=== PATIENT | male | born 1975 | race Two or more races ===

== ENCOUNTER 2019-01-12 12:04 | Inpatient (IN) | payer SELFPAY ==
[2019-01-12] MEDS ORDERED: NORMAL SALINE 1000 ML 1,000 ML IV ONE ×3 (12:12→14:13)
[2019-01-12] MEDS ORDERED: PIPERACILLIN/TAZOBACTAM 3.375 GM VIAL IV ONE (12:36)
[2019-01-12] MEDS ORDERED: VANCOMYCIN HCL INJ 1000 MG VIAL IV ONE (12:36)
[2019-01-12 12:41] LABS: HEMATOCRIT 34.6 % (37.9-51.0); HEMOGLOBIN 11.8 g/dL (13.5-17.0); MEAN CORPUSCULAR HEMOGLOBIN 27.6 pg (27.0-33.4); MEAN CORPUSCULAR HGB CONC 34.2 g/dL (32.0-36.0); MEAN CORPUSCULAR VOLUME 81 fl (80-97); PLATELET COUNT 117 10^3/uL (150-450); RED BLOOD COUNT 4.29 10^6/uL (4.35-5.55); WHITE BLOOD COUNT 29.8 10^3/uL (4.0-10.5)
[2019-01-12 12:51] LABS: VENOUS BLOOD BASE EXCESS -1.6 mmol/L; VENOUS BLOOD HCO3 21.8 mmol/L (20-32); VENOUS BLOOD PCO2 32.8 mmHg (35-63); VENOUS BLOOD PH 7.44 (7.30-7.42)
--- NOTE | 2019-01-12 13:00 | RADIOLOGY REPORT (SQ) ---
EXAM DESCRIPTION: CHEST SINGLE VIEW COMPLETED DATE/TIME: 01/12/2019 12:41 pm REASON FOR STUDY: Tachypnea, tachycardia COMPARISON: None. EXAM PARAMETERS: NUMBER OF VIEWS: One view. TECHNIQUE: Single frontal radiographic view of the chest acquired. RADIATION DOSE: NA LIMITATIONS: None. FINDINGS: LUNGS AND PLEURA: Lungs demonstrate multifocal diffuse bilateral peripheral predominant op acities, greatest within the right upper and left lung base. Small bilateral effusions. Additional left basilar atelectasis likely. No appreciable pneumothorax. MEDIASTINUM AND HILAR STRUCTURES: No masses. Contour normal. HEART AND VASCULAR STRUCTURES: Normal heart size. Aortic atherosclerosis. BONES: No acute findings. HARDWARE: None in the chest. OTHER: No other significant finding. IMPRESSION: Multiple bilateral peripherally predominant airspace opacities suggestive of multifocal pneumonia with small bilateral effusions. Peripheral predominance raises the question of septic embo li. Consider CT for further characterization. Findings discussed with Dr. Hernandes at the time of interpretation. TECHNICAL DOCUMENTATION: JOB ID: [id number] [employer]- All Rights Reserved Reading location - IP/workstation name: [email or web address]
[2019-01-12 13:12] LABS: ABSOLUTE LYMPHOCYTES# (MANUAL) 2.4 10^3/uL (0.5-4.7); ABSOLUTE MONOCYTES # (MANUAL) 0.9 10^3/uL (0.1-1.4); ABSOLUTE NEUTROPHILS# (MANUAL) 26.5 10^3/uL (1.7-8.2); BAND NEUTROPHILS % (MANUAL) 5 % (3-5); BASOPHILS % (MANUAL) 0 % (0-2); EOSINOPHILS % (MANUAL) 0 % (0-6); LYMPHOCYTES % (MANUAL) 8 % (13-45); MONOCYTES % (MANUAL) 3 % (3-13); SEGMENTED NEUTROPHILS % (MAN) 84 % (42-78); TOTAL CELLS COUNTED 100
[2019-01-12 13:13] LABS: ALANINE AMINOTRANSFERASE 155 U/L (21-72); ALBUMIN 2.9 g/dL (3.5-5.0); ALKALINE PHOSPHATASE 184 U/L (38-126); ANION GAP 15 (5-19); ASPARTATE AMINO TRANSFERASE 203 U/L (17-59); BILIRUBIN,DIRECT 1.9 mg/dL (0.0-0.4); BILIRUBIN,TOTAL 2.8 mg/dL (0.2-1.3); BLOOD UREA NITROGEN 56 mg/dL (7-20); CARBON DIOXIDE 23 mmol/L (22-30); CHLORIDE 85 mmol/L (98-107); CREATINE KINASE 41 U/L (55-170); GLUCOSE 131 mg/dL (75-110); POTASSIUM 4.8 mmol/L (3.6-5.0); SODIUM 122.8 mmol/L (137-145); TOTAL PROTEIN 8.2 g/dL (6.3-8.2)
[2019-01-12 13:14] LABS: ANISOCYTOSIS 1+; POLYCHROMASIA SLIGHT; TOXIC GRANULATION 2+; TOXIC VACUOLATION PRESENT
[2019-01-12 13:19] LABS: PLATELET COMMENT DECREASED
[2019-01-12 13:23] LABS: CREATINE KINASE MB 1.13 ng/mL (<4.55)
[2019-01-12 13:24] LABS: TROPONIN I < 0.012 ng/mL
[2019-01-12] MEDS ORDERED: MORPHINE SULFATE 10 MG/ML INJ IV ONE (14:14)
[2019-01-12] MEDS ORDERED: LORAZEPAM 1 MG TABLET PO ONE (14:35)
[2019-01-12 15:12] LABS: AMORPHOUS SEDIMENT,URINE TRACE /HPF; APPEARANCE,URINE SLIGHTLY-CLOUDY; BILIRUBIN,URINE NEGATIVE (NEGATIVE); GLUCOSE, URINE NEGATIVE (NEGATIVE); KETONES,URINE NEGATIVE (NEGATIVE); LEUKOCYTE ESTERASE,URINE NEGATIVE (NEGATIVE); NITRITE,URINE NEGATIVE (NEGATIVE); PROTEIN,URINE NEGATIVE (NEGATIVE); URINE SPECIFIC GRAVITY 1.015; UROBILINOGEN,URINE NEGATIVE mg/dL (<2.0)
[2019-01-12 15:13] LABS: COLOR,URINE YELLOW
--- NOTE | 2019-01-12 15:13 | ER Document Report ---
Entered by YOHAN STANLEY SCRIBE 01/12/19 1220 Acting as scribe for:NEEL CHANDRA MD ED Respiratory Problem - General Chief Complaint: Breathing Difficulty Stated Complaint: DIFFICULTY BREATHING Time Seen by Provider: 01/12/19 12:12 Information source: Patient, Friend, Emergency Med Personnel Notes: 43-year-old male who presents to the emergency department today with complaints of shortness of breath. The patient employer is at bedside, and he is providing most of the history as the patient is tachypneic, tachycardic, and hypoxic. Employer states that he has been out of town for several days, went to the patient's residence to pick him up for work and found him like this. 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 Employer states that the patient has lost a significant amount of weight in the last month or so. Employer states that the patient has been sick for a few weeks, initially complaining of back pain. Employer discloses that the patient has a known history of drug abuse. Patient has visible track max on bilateral upper extremities. History is limited secondary to the patient's medical condition. This 43-year-old male patient reports IV drug abuse for most of his life. His drug of choice is methamphetamine. He states he has been injecting fentanyl in the last couple weeks because of the pain he is having in his back. He reports the pain is in his mid to lower thoracic back. 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 TRAVEL OUTSIDE OF THE [place] IN LAST 30 DAYS: No - Related Data Allergies/Adverse Reactions: No Known Allergies Allergy (Verified 06/18/12 15:02) Past Medical History - General Information source: Patient, Friend, Emergency Med Personnel, [facility] Records - Social History Smoking Status: Unknown if Ever Smoked Cigarette use (# per day): No Chew tobacco use (# tins/day): No Smoking Education Provided: No Frequency of alcohol use: None Drug Abuse: Marijuana - according to previous [facility] chart, Methamphetamine - Patient reports he has been doing IV methamphetamine for many years., Other - IV fentanyl for the last 2 weeks. 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 Lives with: Family Family History: Reviewed & Not Pertinent - Past Medical History Cardiac Medical History: Reports: None Pulmonary Medical History: Reports: None EENT Medical History: Reports: None Neurological Medical History: Reports: None Endocrine Medical History: Reports: None Renal/ Medical History: Reports: None GI Medical History: Reports: None Musculoskeletal Medical History: Reports None Psychiatric Medical History: Reports: Hx Anxiety, Hx Depression Surgical Hx: Negative Review of Systems - Review of Systems -: Yes ROS unobtainable due to patient's medical condition Cardiovascular: See HPI, Heart racing Respiratory: See HPI, Short of breath Physical Exam - Vital signs Vitals: Temp Pulse Resp BP Pulse Ox 97.8 F 125 H 40 H 92/52 L 87 L 01/12/19 12:11 01/12/19 12:11 01/12/19 12:11 01/12/19 12:11 01/12/19 12:11 - Notes Notes: Physical Exam: General: Alert, in severe distress. HEENT: Normocephalic. Atraumatic. PERRL. Extraocular movements intact. Oropharynx clear. Neck: Supple. Non-tender. Respiratory: Severe respiratory distress with rapid deep breathing, tachypneic, hypoxic. Breath sounds show some rales and rhonchi bilaterally. Cardiovascular: Tachycardic, regular rhythm. No murmurs are heard. Abdominal: Normal Inspection. Non-tender. No distension. Normal Bowel Sounds. Back: Tender to percuss the mid to lower thoracic back region. Extremities: Moves all four extremities. Upper extremities: Normal ROM. Normal strength. Track max on both sides of both forearms. Lower extremities: Normal ROM. Normal strength. There is some edema to the feet and ankles on both sides. There are petechial type hemorrhages around both ankles and proximal feet. Neurological: Normal cognition. AAOx4. Normal speech. Psychological: Anxious Course - Re-evaluation Re-evalutation: 01/12/19 16:32 The patient's O2 saturations began declining, he still remained quite tachypneic. ABG showed that he was hyperventilating to the strain with PCO2 6.9, the patient was refusing to tolerate the BiPAP. When given the option of BiPAP or intubation, the patient requested intubation. He was intubated with a 7.5 endotracheal tube following etomidate 20 mg, and succinylcholine 100 mg IV. - Vital Signs Vital signs: Temp Pulse Resp BP Pulse Ox 101.0 F H 125 H 22 H 114/74 94 01/12/19 16:50 01/12/19 12:11 01/12/19 16:50 01/12/19 16:50 01/12/19 16:50 - Laboratory Result Diagrams: 01/12/19 12:12 01/12/19 12:12 Laboratory results interpreted by me: 01/12/19 01/12/19 01/12/19 12:12 12:12 12:12 WBC 29.8 H RBC 4.29 L Hgb 11.8 L Hct 34.6 L RDW 16.0 H Plt Count 117 L Seg Neuts % (Manual) 84 H Lymphocytes % (Manual) 8 L Abs Neuts (Manual) 26.5 H VBG pH 7.44 H VBG pCO2 32.8 L Sodium 122.8 L Chloride 85 L BUN 56 H Creatinine 1.53 H Est GFR (Non-Af Amer) 50 L Glucose 131 H Lactic Acid Calcium 8.0 L Magnesium 2.6 H Total Bilirubin 2.8 H Direct Bilirubin 1.9 H AST 203 H ALT 155 H Alkaline Phosphatase 184 H Creatine Kinase 41 L Albumin 2.9 L Urine Blood 01/12/19 01/12/19 12:20 14:46 WBC RBC Hgb Hct RDW Plt Count Seg Neuts % (Manual) Lymphocytes % (Manual) Abs Neuts (Manual) VBG pH VBG pCO2 Sodium Chloride BUN Creatinine Est GFR (Non-Af Amer) Glucose Lactic Acid 3.2 H Calcium Magnesium Total Bilirubin Direct Bilirubin AST ALT Alkaline Phosphatase Creatine Kinase Albumin Urine Blood MODERATE H - Diagnostic Test Radiology reviewed: Image reviewed, Reports reviewed - Chest x-ray shows multiple bilateral peripherally predominant airspace opacities suggestive of multifocal pneumonia with small bilateral effusions. The peripheral predominance raises the question of septic emboli. - EKG Interpretation by Me EKG shows normal: Sinus rhythm, [place], Intervals, QRS Complexes, ST-T Waves Rate: Tachycardia - 133 When compared to previous EKG there are: Previous EKG unavailable Procedures - Intubation Orotracheal Time of Intubation: 16:25 Airway evaluation: Normal anatomy Mallampati Classification: Class 1 Medications: Etomidate, Succinylcholine Intubation method: Orotracheal Blade type: Tomeka Blade size: 4 ETT size: 7.5 ETT secured at: Teeth Breath Sounds after Intubation: Equal End tidal CO2 confirmed: Yes Discharge - Discharge Clinical Impression: Multifocal pneumonia, Hyponatremia, Intravenous drug abuse, continuous, Sepsis due to pneumonia, Acute hepatitis, Acute respiratory failure with hypoxia, Acute renal injury due to sepsis Leukocytosis Qualifiers: Leukocytosis type: bandemia Qualified Code(s): D72.825 - Bandemia Acute renal failure Qualifiers: Acute renal failure type: unspecified Qualified Code(s): N17.9 - Acute kidney failure, unspecified Fever Qualifiers: Fever type: unspecified Qualified Code(s): R50.9 - Fever, unspecified Condition: Serious Disposition: ADMITTED INPATIENT Admitting Provider: Hospitalist Unit Admitted: ICU Scribe Attestation: 01/12/19 12:46 I personally performed the services described in the documentation, reviewed and edited the documentation which was dictated to the scribe in my presence, and it accurately records my words and actions. I personally performed the services described in the documentation, reviewed and edited the documentation which was dictated to the scribe in my presence, and it accurately records my words and actions.
[2019-01-12] MEDS ORDERED: NORMAL SALINE 1000 ML 1,000 ML IV PRN (15:14)
[2019-01-12] MEDS ORDERED: PHARMACY COMMUNICATION ORDER MC NR (15:15)
[2019-01-12 15:23] LABS: URINE BARBITURATES SCREEN NEGATIVE; URINE BENZODIAZEPINES SCREEN NEGATIVE; URINE COCAINE SCREEN NEGATIVE; URINE MARIJUANA (THC) SCREEN NEGATIVE; URINE METHADONE SCREEN NEGATIVE; URINE PHENCYCLIDINE SCREEN NEGATIVE
[2019-01-12] MEDS ORDERED: VANCOMYCIN HCL 0 MG in DEXTROSE 5%-WATER 250 ML IV NR (15:30)
[2019-01-12] MEDS ORDERED: ACETAMINOPHEN 650 MG SUPP.RECT PR PRN (15:34)
[2019-01-12] MEDS ORDERED: ALBUTEROL SULFATE 0.083% NEB 2.5 MG/3 ML AMPUL NEB PRN (15:35)
[2019-01-12 15:44] LABS: ARTERIAL BLOOD BASE EXCESS -3.1 mmol/L; ARTERIAL BLOOD H2CO3 0.81 mmol/L (1.05-1.35); ARTERIAL BLOOD HCO3 19.4 mmol/L (20-24); ARTERIAL BLOOD O2 SATURATION 95.2 % (94-98); ARTERIAL BLOOD PCO2 26.9 mmHg (35-45); ARTERIAL BLOOD PH 7.48 (7.35-7.45); ARTERIAL BLOOD PO2 69.1 mmHg (80-100); ARTERIAL BLOOD TOTAL CO2 20.3 mmol/L (23-27)
[2019-01-12 15:45] LABS: ARTERIAL BLOOD FIO2 4LNC
[2019-01-12] MEDS ORDERED: ETOMIDATE INJ/PF 20 MG/10 ML SDV IV ONE ×2 (16:06→16:31)
[2019-01-12] MEDS ORDERED: ACETAMINOPHEN 650 MG SUPP.RECT PR ONE (16:15)
[2019-01-12] MEDS ORDERED: LORAZEPAM INJ 2 MG/1 ML VIAL IV PRN (16:25)
--- NOTE | 2019-01-12 16:29 | PDOC H&P ---
History of Present Illness Admission Date/PCP: 01/12/19 15:18 Patient complains of: Shortness of breath History of Present Illness: Please note some of the history is limited as the patient was on BiPAP with respiratory rate of 50. DAWSON SQUIRES is a 43 year old male who developed increasing shortness of breath for approximately 1 week. 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 He typically is very active. He started complaining of some back discomfort 2 weeks ago. Over the last week he has been having increasing shortness of breath culminating in marked tachypnea with oxygen saturation of 87% on room air. His tachypnea has quickly progressed. He is now on BiPAP. His respiratory rate has been in the 40s and 50s. He understands that there is a good chance that he may be intubated. He has a history of IV drug use typically injecting speed. This is current. He also reports using methamphetamine. He has bilateral pneumonia with diffuse infiltrates much greater on the right than the left. He also exhibits abnormal liver enzymes, elevated lactic acid, white blood cell count of 30,000 and currently appears to be mentating although he is having trouble co mmunicating especially with his tachypnea. Qualify for a diagnosis of sepsis present on admission. The patient was referred to the hospitalist service for admission. He will be admitted to the ICU. If BiPAP fails then he will need to be intubated. I will also consult Dr. Dale from pulmonology. We are going to obtain a CT scan of the chest to see if these infiltrates are multiple septic emboli. We are also obtaining an echocardiogram to assess for vegetations. Past Medical History Cardiac Medical History: Reports: None Denies: Congestive Heart Failure, Coronary Artery Disease, Myocardial Infarction, Hypertension, Pulmonary Embolism Pulmonary Medical History: Reports: None Denies: Asthma, Bronchitis, Chronic Obstructive Pulmonary Disease (COPD), Intubation EENT Medical History: Reports: None Neurological Medical History: Reports: None Endocrine Medical History: Reports: None Renal/ Medical History: Reports: None Malignancy Medical History: Reports: None GI Medical History: Reports: None Musculoskeltal Medical History: Reports: None Skin Medical History: Reports: None Psychiatric Medical History: Reports: Depression, Substance Abuse, Tobacco Dependency Hematology: Reports: None Infectious Medical History: Reports: None Past Surgical History Past Surgical History: Reports: None Social History Information Source: Patient, Friend Lives with: Family Smoking Status: Former Smoker Frequency of Alcohol Use: None Hx Recreational Drug Use: Yes Drugs: Other - Speed and methamphetamine Hx Prescription Drug Abuse: No - Advance Directive Resuscitation Status: Full Code Surrogate healthcare decision maker:: He does not have a written healthcare proxy however he specifically asked that his friend, who was present, Anoop Abrams, be his proxy decision maker if needed. Family History Family History: Reviewed & Not Pertinent Parental Family History Reviewed: Yes Children Family History Reviewed: Yes - 1 son with autism Sibling(s) Family History Reviewed.: Yes Medication/Allergy Allergies/Adverse Reactions: No Known Allergies Allergy (Verified 06/18/12 15:02) Review of Systems ROS unobtainable: Other - Somewhat limited due to BiPAP and tachypnea Constitutional: PRESENT: as per HPI, fatigue, fever(s). ABSENT: night sweats, weight loss Eyes: ABSENT: visual disturbances Ears: ABSENT: hearing changes Nose, Mouth, and Throat: ABSENT: headache(s), mouth pain Cardiovascular: ABSENT: chest pain, edema, palpitations Respiratory: PRESENT: cough, dyspnea. ABSENT: sputum Gastrointestinal: ABSENT: abdominal pain, coffee ground emesis, constipation, diarrhea, hematemesis Genitourinary: ABSENT: dysuria, hematuria Musculoskeletal: PRESENT: back pain - Thoracolumbar area Integumentary: PRESENT: lesions - Right cheek Neurological: ABSENT: abnormal speech, confusion, memory loss Psychiatric: PRESENT: anxiety. ABSENT: depression, hallucinations Endocrine: ABSENT: cold intolerance, flushing, heat intolerance Hematologic/Lymphatic: ABSENT: easy bleeding, easy bruising, lymphadenopathy Allergic/Immunologic: ABSENT: seasonal rhinorrhea Physical Exam Vital Signs: Temp Pulse Resp BP Pulse Ox 99.3 F 125 H 36 H 101/74 93 01/12/19 15:30 01/12/19 12:11 01/12/19 15:30 01/12/19 15:30 01/12/19 15:30 Intake & Output 01/11/19 01/12/19 01/13/19 06:59 06:59 06:59 Intake Total 1999 Balance 1999 Weight 63.503 kg General appearance: PRESENT: cooperative, severe distress, well-developed Head exam: PRESENT: atraumatic, normocephalic Eye exam: PRESENT: conjunctiva pink, EOMI, scleral icterus Ear exam: PRESENT: normal external ear exam Mouth exam: PRESENT: moist, neck supple, tongue midline Neck exam: ABSENT: carotid bruit, JVD, lymphadenopathy Respiratory exam: PRESENT: accessory muscle use, decreased breath sounds, rhonchi - Very difficult to assess due to tachypnea and extremely shallow respirations, symmetrical, tachypnea. ABSENT: rales, wheezes Cardiovascular exam: PRESENT: +S1, +S2, tachycardia Pulses: PRESENT: normal radial pulses, normal dorsalis pedis pul GI/Abdominal exam: PRESENT: normal bowel sounds, soft. ABSENT: distended, guarding, tenderness Rectal exam: PRESENT: deferred Gentrourinary exam: ABSENT: indwelling catheter Extremities exam: ABSENT: calf tenderness, joint swelling, pedal edema Musculoskeletal exam: PRESENT: normal inspection Neurological exam: PRESENT: alert, awake, oriented to person, oriented to place, oriented to situation Psychiatric exam: PRESENT: anxious Focused psych exam: ABSENT: delusional, paranoid Skin exam: PRESENT: other - Onychomycosis several toenails. Sallow complexion. Results Laboratory Results: 01/12/19 12:12 01/12/19 12:12 01/12/19 01/12/19 01/12/19 12:12 12:12 12:12 WBC 29.8 H RBC 4.29 L Hgb 11.8 L Hct 34.6 L MCV 81 MCH 27.6 MCHC 34.2 RDW 16.0 H Plt Count 117 L Seg Neutrophils % Not Reportable Lymphocytes % Not Reportable Monocytes % Not Reportable Eosinophils % Not Reportable Basophils % Not Reportable Absolute Neutrophils Not Reportable Absolute Lymphocytes Not Reportable Absolute Monocytes Not Reportable Absolute Eosinophils Not Reportable Absolute Basophils Not Reportable Carbonic Acid HCO3/H2CO3 Ratio ABG pH ABG pCO2 ABG pO2 ABG HCO3 ABG O2 Saturation ABG Base Excess VBG pH VBG pCO2 VBG HCO3 VBG Base Excess FiO2 Sodium 122.8 L Potassium 4.8 Chloride 85 L Carbon Dioxide 23 Anion Gap 15 BUN 56 H Creatinine 1.53 H Est GFR ( Amer) > 60 Est GFR (Non-Af Amer) 50 L Glucose 131 H Lactic Acid Calcium 8.0 L Magnesium 2.6 H Total Bilirubin 2.8 H AST 203 H ALT 155 H Alkaline Phosphatase 184 H Total Protein 8.2 Albumin 2.9 L TSH 2.09 Urine Color Urine Appearance Urine pH Ur Specific [place] Urine Protein Urine Glucose (UA) Urine Ketones Urine Blood Urine Nitrite Ur Leukocyte Esterase Urine WBC (Auto) Urine RBC (Auto) 01/12/19 01/12/19 01/12/19 12:12 12:20 14:46 WBC RBC Hgb Hct MCV MCH MCHC RDW Plt Count Seg Neutrophils % Lymphocytes % Monocytes % Eosinophils % Basophils % Absolute Neutrophils Absolute Lymphocytes Absolute Monocytes Absolute Eosinophils Absolute Basophils Carbonic Acid HCO3/H2CO3 Ratio ABG pH ABG pCO2 ABG pO2 ABG HCO3 ABG O2 Saturation ABG Base Excess VBG pH 7.44 H VBG pCO2 32.8 L VBG HCO3 21.8 VBG Base Excess -1.6 FiO2 Sodium Potassium Chloride Carbon Dioxide Anion Gap BUN Creatinine Est GFR ( Amer) Est GFR (Non-Af Amer) Glucose Lactic Acid 3.2 H Calcium Magnesium Total Bilirubin AST ALT Alkaline Phosphatase Total Protein Albumin TSH Urine Color YELLOW Urine Appearance SLIGHTLY-CLOUDY Urine pH 5.0 Ur Specific [place] 1.015 Urine Protein NEGATIVE Urine Glucose (UA) NEGATIVE Urine Ketones NEGATIVE Urine Blood MODERATE H Urine Nitrite NEGATIVE Ur Leukocyte Esterase NEGATIVE Urine WBC (Auto) 7 Urine RBC (Auto) 4 01/12/19 15:20 WBC RBC Hgb Hct MCV MCH MCHC RDW Plt Count Seg Neutrophils % Lymphocytes % Monocytes % Eosinophils % Basophils % Absolute Neutrophils Absolute Lymphocytes Absolute Monocytes Absolute Eosinophils Absolute Basophils Carbonic Acid 0.81 L HCO3/H2CO3 Ratio 23:1 ABG pH 7.48 H ABG pCO2 26.9 L ABG pO2 69.1 L ABG HCO3 19.4 L ABG O2 Saturation 95.2 ABG Base Excess -3.1 VBG pH VBG pCO2 VBG HCO3 VBG Base Excess FiO2 4LNC Sodium Potassium Chloride Carbon Dioxide Anion Gap BUN Creatinine Est GFR ( Amer) Est GFR (Non-Af Amer) Glucose Lactic Acid Calcium Magnesium Total Bilirubin AST ALT Alkaline Phosphatase Total Protein Albumin TSH Urine Color Urine Appearance Urine pH Ur Specific [place] Urine Protein Urine Glucose (UA) Urine Ketones Urine Blood Urine Nitrite Ur Leukocyte Esterase Urine WBC (Auto) Urine RBC (Auto) 01/12/19 01/12/19 12:12 12:12 Creatine Kinase 41 L CK-MB (CK-2) 1.13 Troponin I < 0.012 Impressions: Chest X-Ray 01/12/19 12:12 IMPRESSION: Multiple bilateral peripherally predominant airspace opacities suggestive of multifocal pneumonia with small bilateral effusions. Peripheral predominance raises the question of septic emboli. Consider CT for further characterization. Findings discussed with Dr. Hernandes at the time of interpretation. Assessment and Plan - Diagnosis (1) Sepsis due to pneumonia Is this a current diagnosis for this admission?: Yes Plan: 01/12/19 16:18 The patient meets criteria for sepsis with low blood pressure, tachypnea, hypoxia and acute liver injury. He has an elevated lactic acid level as well as a white blood cell count of 30,000. The sepsis is present on admission and due to multifocal bilateral pneumonia. He is already received 3 L of normal saline bolus and will remain on IV fluids. We will continue to monitor his blood work including lactic acid levels. He will be admitted to the ICU for very close monitoring. 01/12/19 16:22 (2) Acute respiratory failure with hypoxia Is this a current diagnosis for this admission?: Yes Plan: 01/12/19 16:19 Secondary to the pneumonia. He is failing BiPAP therapy. We are awaiting a b lood gas. He will likely be intubated. Pulmonology is consulted as well. He will receive nebulizer treatments and antibiotics for the pneumonia. We are holding off on steroids due to the infectious nature of the illness and no history of asthma or COPD. (3) Multifocal pneumonia Is this a current diagnosis for this admission?: Yes Plan: 01/12/19 16:20 The patient has multiple sporadic infiltrates bilaterally. With his history of IV drug use these are most likely septic emboli. I have started him on vancomycin and Zosyn for broad-spectrum coverage including methicillin-resistant staph aureus. Blood cultures are pending. If he does produce sputum I have asked that that be sent for Gram stain and culture as well. We will narrow the antibiotic spectrum as soon as we have more information. Staff would be the most likely skin jeannie causing the septic emboli if there is associated endocarditis. An echocardiogram has been ordered as well. (4) Acute renal injury due to sepsis Is this a current diagnosis for this admission?: Yes Plan: 01/12/19 16:22 BUN is elevated. The creatinine is also slightly elevated. The acute kidney injury is secondary to sepsis with possible hypoperfusion. He has received 3 L of normal saline bolused and is on continuous IV fluids at this time. We will continue to monitor his blood work. We will adjust medications for his renal function. 03/19/19 16:22 (5) Acute hepatitis Is this a current diagnosis for this admission?: Yes Plan: 01/12/19 16:23 The patient has no known history of liver disease. The acute abnormalities are consistent with sepsis. We will continue to monitor renal function. (6) Hyponatremia Is this a current diagnosis for this admission?: Yes Plan: 01/12/19 16:23 Hyponatremia is most likely related to the pneumonia however we will consider o ther etiologies. We will recheck his electrolytes. Will make adjustments to his regimen based on his lab results. (7) Intravenous drug abuse, continuous Is this a current diagnosis for this admission?: Yes Plan: 01/12/19 16:24 Anticipate issues from withdrawal. He does have intravenous morphine ordered as well as benzodiazepine therapy. (8) Leukocytosis Qualifiers: Leukocytosis type: bandemia Qualified Code(s): D72.825 - Bandemia Is this a current diagnosis for this admission?: Yes Plan: 01/12/19 16:27 As noted above the white blood cell count is 30,000. We will continue to monitor. It may show a slight increase before the antibiotics have a chance to take effect but I expect his white blood cell count to improve. - Time Time Spent with patient: 70 minutes Time Spent with patient: 35 or more minutes Medications reviewed and adjusted accordingly: Yes - Inpatient Certification Based on my medical assessment, after consideration of the patient's comorbidities, presenting symptoms, or acuity I expect that the services needed warrant INPATIENT care.: Yes I certify that my determination is in accordance with my understanding of Medicare's requirements for reasonable and necessary INPATIENT services [42 CFR 412.3e].: Yes Medical Necessity: Need Close Monitoring Due to Risk of Patient Decompensation, Need For IV Fluids, Need For Continuous Telemetry Monitoring, Need for Nebulizer Therapy and Monitoring of Response, Need for Pain Control, Need for IV Antibiotics, Risk of Complication if Not Cared For in Hospital Post 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
[2019-01-12] MEDS ORDERED: SUCCINYLCHOLINE CHLORIDE INJ 200 MG/10 ML VIAL IV ONE (16:32)
[2019-01-12] MEDS ORDERED: PROPOFOL 1,000 MG/100 ML INFUS..BTL IV PRN ×2 (16:32→18:43)
[2019-01-12] MEDS ORDERED: PROPOFOL 1,000 MG/100 ML INFUS..BTL IV ONE (16:33)
--- NOTE | 2019-01-12 16:44 | EKG REPORT ---
SEVERITY:- OTHERWISE NORMAL ECG - SINUS TACHYCARDIA : Confirmed by: Camilo Jerry 12-Jan-2019 16:42:57
--- NOTE | 2019-01-12 17:20 | RADIOLOGY REPORT (SQ) ---
EXAM DESCRIPTION: CHEST SINGLE VIEW COMPLETED DATE/TIME: 01/12/2019 5:12 pm REASON FOR STUDY: Post intubation COMPARISON: None. EXAM PARAMETERS: NUMBER OF VIEWS: One view. TECHNIQUE: Single frontal radiographic view of the chest acquired. RADIATION DOSE: NA LIMITATIONS: None. FINDINGS: LUNGS AND PLEURA: No change. Bilateral patchy airspace disease. MEDIASTINUM AND HILAR STRUCTURES: No masses. Contour normal. HEART AND VASCULAR STRUCTURES: Heart normal in size. Normal vasculature. BONES: No acute findings. HARDWARE: An endotracheal tube has its tip 7 cm above the anaid. An NG tube extends just inside the stomach. OTHER: No other significant finding. IMPRESSION: Bilateral airspace disease unchanged. Tube placement as described. TECHNICAL DOCUMENTATION: JOB ID: [id number] [employer]- All Rights Reserved Reading location - IP/workstation name: [email or web address]
[2019-01-12] MEDS ORDERED: MIDAZOLAM HCL 50 MG/100 ML RTUINJ ONE (17:35)
--- NOTE | 2019-01-12 17:56 | RADIOLOGY REPORT (SQ) ---
EXAM DESCRIPTION: CT CHEST WITH COMPLETED DATE/TIME: 01/12/2019 5:37 pm REASON FOR STUDY: Bilateral pneumonia assess for septic emboli COMPARISON: None. TECHNIQUE: CT scan of the chest performed using helical scanning technique with dynamic intravenous contrast injection. Images reviewed with lung, soft tissue and bone windows. Reconstructed coronal and sagittal MPR and MIP images reviewed. All images stored on PACS. All CT scanners at this facility use dose modulation, iterative reconstruction, and/or weight based d osing when appropriate to reduce radiation dose to as low as reasonably achievable (ALARA). [facility]: Dose Right [facility]: CareDose [facility]: Dose Right [facility]: Teradose 4D [facility]: [email or web address] CONTRAST TYPE AND DOSE: contrast/concentration: Isovue 300.00 mg/ml; Total Contrast Delivered: 80.0 ml; Total Saline Delivered: 55.0 ml RENAL FUNCTION: BUN 56 creatinine 1.53 RADIATION DOSE: CT Rad equipment meets quality standard of care and radiation dose reduction techniq ues were employed. CTDIvol: 10.8 mGy. DLP: 428 mGy-cm. . LIMITATIONS: None. FINDINGS: LUNGS AND PLEURA: There is diffuse patchy opacification both lungs with extensive cavitati on. Marked opacification in the lower lobes with air bronchograms. HILAR AND MEDIASTINAL STRUCTURES: Mild precarinal and subcarinal adenopathy. Mild hilar adenopathy. HEART AND VASCULAR STRUCTURES: No aneurysm or dissection. No central pulmonary emboli. No pericardi al effusion. HARDWARE: Endotracheal tube. NG tube. UPPER ABDOMEN: No significant findings. Limited exam. THYROID AND OTHER SOFT TISSUES: No masses. No adenopathy. BONES: No significant finding. OTHER: No other significant finding. IMPRESSION: Extensive airspace disease in both lungs with cavitation. Multicentric neoplasm versus atypical infectious process. Fairly dense airspace disease in the lower lobes. TECHNICAL DOCUMENTATION: JOB ID: [id number] Quality ID # [id number]: Final reports with documentation of one or more dose reduction techniques (e.g., Au tomated exposure control, adjustment of the mA and/or kV according to patient size, use of iterative reconstruction technique) [address]- All Rights Reserved Reading location - IP/workstation name: [email or web address]
[2019-01-12] MEDS ORDERED: TUBERCULIN,PURIF.PROT.DERIV. 5 TU/0.1 ML TEST 1 ML VIAL ID ONE (18:00)
[2019-01-12 18:06] LABS: ARTERIAL BLOOD BASE EXCESS -6.8 mmol/L; ARTERIAL BLOOD FIO2 90%; ARTERIAL BLOOD H2CO3 1.78 mmol/L (1.05-1.35); ARTERIAL BLOOD HCO3 21.8 mmol/L (20-24); ARTERIAL BLOOD O2 SATURATION 89.6 % (94-98); ARTERIAL BLOOD PCO2 59.3 mmHg (35-45); ARTERIAL BLOOD PO2 70.6 mmHg (80-100); ARTERIAL BLOOD TOTAL CO2 23.7 mmol/L (23-27)
[2019-01-12 18:07] LABS: ARTERIAL BLOOD PH 7.18 (7.35-7.45)
--- NOTE | 2019-01-12 18:37 | RADIOLOGY REPORT (SQ) ---
EXAM DESCRIPTION: CHEST SINGLE VIEW COMPLETED DATE/TIME: 01/12/2019 6:27 pm REASON FOR STUDY: ET TUBE PLACEMENT COMPARISON: 01/12/2019 0900 hours EXAM PARAMETERS: NUMBER OF VIEWS: One view TECHNIQUE: Single frontal radiograph of the chest. RADIATION DOSE: N/A LIMITATIONS: None. FINDINGS: TEMPORARY SUPPORT DEVICES:ETT in expected location. NG tube courses below the latha-diaphr agm in to the stomach. LUNGS AND PLEURA: Diffuse opacities. No improvement. Small right effusion. No masses. No pneumothora x. MEDIASTINUM AND HILAR STRUCTURES: No masses. Contour normal. HEART AND VASCULAR STRUCTURES: Heart normal in size. normal vascularity. Aorta normal for age. BONES: No acute findings. OTHER: No other significant finding. IMPRESSION: Stable appearance of the lungs. SUPPORT DEVICE(S) IN EXPECTED LOCATIONS. TECHNICAL DOCUMENTATION: JOB ID: [id number]- All Rights Reserved Reading location - IP/workstation name: [email or web address]
[2019-01-12] MEDS ORDERED: PHENYLEPHRINE HCL INJ/PF 10 MG/1 ML SDV ONE (18:43)
[2019-01-12] MEDS ORDERED: SODIUM BICARBONATE 8.4% INJ 50 MEQ/50 ML DISP.SYRIN IV ONE (19:00)
[2019-01-12] MEDS ORDERED: SODIUM BICARBONATE 8.4% INJ 50 MEQ/50 ML DISP.SYRIN ONE (19:00)
[2019-01-12] MEDS: PIPERACILLIN SODIUM/TAZOBACTAM 3.375 GM in NORMAL SALINE 100 ML IV SCH (19:20)
[2019-01-12] MEDS: RINGERS SOLUTION,LACTATED 1,000 ML IV PRN (19:24)
[2019-01-12] MEDS: MIDAZOLAM HCL 50 MG/100 ML RTUINJ IV PRN ×2 (19:25→21:26)
[2019-01-12 19:49] LABS: ARTERIAL BLOOD BASE EXCESS 0.4 mmol/L; ARTERIAL BLOOD H2CO3 1.26 mmol/L (1.05-1.35); ARTERIAL BLOOD HCO3 25.3 mmol/L (20-24); ARTERIAL BLOOD O2 SATURATION 99.5 % (94-98); ARTERIAL BLOOD PCO2 41.8 mmHg (35-45); ARTERIAL BLOOD PO2 225.7 mmHg (80-100); ARTERIAL BLOOD TOTAL CO2 26.6 mmol/L (23-27)
[2019-01-12 19:50] LABS: ARTERIAL BLOOD FIO2 100%
[2019-01-12] MEDS: DEXTROSE 5%-WATER 250 ML with PHENYLEPHRINE HCL 40 MG IV PRN ×2 (19:55)
[2019-01-12] MEDS: ALBUTEROL SULFATE 0.083% NEB 2.5 MG/3 ML AMPUL NEB SCH (20:21)
[2019-01-12] MEDS ORDERED: NORMAL SALINE 500 ML with ROCURONIUM BROMIDE 500 MG IV PRN ×2 (20:51)
[2019-01-12] MEDS: HEPARIN SOD (PORCINE) 5,000 UNIT/ML 1 ML SYRINGE SUBCUT SCH (21:21)
[2019-01-12] MEDS: VANCOMYCIN HCL 500 MG in DEXTROSE 5%-WATER 100 ML IV SCH (21:33)
[2019-01-12] MEDS: GUAIFENESIN 600 MG TABLET.SA PO SCH (21:33)
[2019-01-12] MEDS: FAMOTIDINE INJ/PF 20 MG/2 ML SDV IV SCH (21:35)
[2019-01-12] MEDS: MORPHINE SULFATE 10 MG/ML INJ IV PRN (22:38)
[2019-01-13] MEDS: PIPERACILLIN SODIUM/TAZOBACTAM 3.375 GM in NORMAL SALINE 100 ML IV SCH ×5 (00:08→23:58)
[2019-01-13] MEDS: MIDAZOLAM HCL 50 MG/100 ML RTUINJ IV PRN ×6 (00:15→19:43)
[2019-01-13] MEDS: RINGERS SOLUTION,LACTATED 1,000 ML IV PRN (00:55)
[2019-01-13 01:11] LABS: ARTERIAL BLOOD BASE EXCESS -2.4 mmol/L; ARTERIAL BLOOD H2CO3 1.35 mmol/L (1.05-1.35); ARTERIAL BLOOD HCO3 23.5 mmol/L (20-24); ARTERIAL BLOOD O2 SATURATION 94.6 % (94-98); ARTERIAL BLOOD PH 7.34 (7.35-7.45); ARTERIAL BLOOD TOTAL CO2 24.8 mmol/L (23-27)
[2019-01-13 01:12] LABS: ARTERIAL BLOOD FIO2 35%
[2019-01-13] MEDS: ALBUTEROL SULFATE 0.083% NEB 2.5 MG/3 ML AMPUL NEB SCH ×4 (02:15→20:24)
[2019-01-13 04:44] LABS: HEMATOCRIT 32.8 % (37.9-51.0); HEMOGLOBIN 10.8 g/dL (13.5-17.0); MEAN CORPUSCULAR HGB CONC 33.1 g/dL (32.0-36.0); MEAN CORPUSCULAR VOLUME 82 fl (80-97); RED BLOOD COUNT 4.01 10^6/uL (4.35-5.55); RED CELL DISTRIBUTION WIDTH 15.7 % (11.5-14.0)
[2019-01-13] MEDS: DEXTROSE 5%-WATER 250 ML with PHENYLEPHRINE HCL 40 MG IV PRN ×10 (04:45→23:58)
[2019-01-13 04:46] LABS: INTERNATIONAL RATION (INR) 1.54; PROTHROMBIN TIME 19.3 SEC (11.4-15.4)
[2019-01-13 04:47] LABS: PARTIAL THROMBOPLASTIN TIME 29.6 SEC (23.5-35.8)
[2019-01-13 05:06] LABS: ALANINE AMINOTRANSFERASE 157 U/L (21-72); ALBUMIN 1.9 g/dL (3.5-5.0); ALKALINE PHOSPHATASE 123 U/L (38-126); ANION GAP 11 (5-19); ASPARTATE AMINO TRANSFERASE 268 U/L (17-59); BILIRUBIN,DIRECT 1.6 mg/dL (0.0-0.4); BILIRUBIN,TOTAL 1.9 mg/dL (0.2-1.3); BLOOD UREA NITROGEN 48 mg/dL (7-20); CALCIUM 7.2 mg/dL (8.4-10.2); CARBON DIOXIDE 23 mmol/L (22-30); CHLORIDE 103 mmol/L (98-107); GLUCOSE 165 mg/dL (75-110); PHOSPHORUS 7.3 mg/dL (2.5-4.5); POTASSIUM 4.5 mmol/L (3.6-5.0); SODIUM 136.8 mmol/L (137-145)
[2019-01-13] MEDS: HEPARIN SOD (PORCINE) 5,000 UNIT/ML 1 ML SYRINGE SUBCUT SCH ×3 (05:09→21:59)
[2019-01-13 05:15] LABS: ARTERIAL BLOOD BASE EXCESS -1.3 mmol/L; ARTERIAL BLOOD H2CO3 1.59 mmol/L (1.05-1.35); ARTERIAL BLOOD HCO3 25.6 mmol/L (20-24); ARTERIAL BLOOD O2 SATURATION 89.2 % (94-98); ARTERIAL BLOOD PCO2 52.7 mmHg (35-45); ARTERIAL BLOOD TOTAL CO2 27.2 mmol/L (23-27)
[2019-01-13 05:18] LABS: ARTERIAL BLOOD FIO2 30%
[2019-01-13 05:21] LABS: PLATELET COUNT 78 10^3/uL (150-450)
[2019-01-13 05:22] LABS: WHITE BLOOD COUNT 26.5 10^3/uL (4.0-10.5)
[2019-01-13 05:24] LABS: ABSOLUTE LYMPHOCYTES# (MANUAL) 1.3 10^3/uL (0.5-4.7); ABSOLUTE MONOCYTES # (MANUAL) 1.6 10^3/uL (0.1-1.4); ABSOLUTE NEUTROPHILS# (MANUAL) 23.6 10^3/uL (1.7-8.2); BAND NEUTROPHILS % (MANUAL) 4 % (3-5); BASOPHILS % (MANUAL) 0 % (0-2); EOSINOPHILS % (MANUAL) 0 % (0-6); LYMPHOCYTES % (MANUAL) 5 % (13-45); MONOCYTES % (MANUAL) 6 % (3-13); SEGMENTED NEUTROPHILS % (MAN) 85 % (42-78); TOTAL CELLS COUNTED 100
[2019-01-13 05:25] LABS: ANISOCYTOSIS 1+; HYPOCHROMASIA 1+; PLATELET COMMENT ADEQUATE
[2019-01-13] MEDS ORDERED: NORMAL SALINE 1000 ML 1,000 ML IV PRN (05:34)
[2019-01-13] MEDS: MORPHINE SULFATE 10 MG/ML INJ IV PRN (05:56)
--- NOTE | 2019-01-13 07:24 | RADIOLOGY REPORT (SQ) ---
EXAM DESCRIPTION: X-ray single view chest. CLINICAL HISTORY: 43 years Male, Pneumonia COMPARISON: Prior chest x-rays and chest CT performed on 01/12/2019 TECHNIQUE: Single (one) portable x-ray view of the chest performed on 01/13/2019 at 6:34 AM FINDINGS: The lungs are well expanded. Again demonstrated are multiple airspace opacities and cavitary lesions bilaterally consistent with either an atypical multifocal infectious process or neoplastic process. Findings appear slightly worse when compared to the prior chest x-rays. There is no evidence of a pneumothorax. The cardiac silhouette is normal in size and configuration. No acute osseous abnormality is identified. No focal soft tissue abnormalities are seen. Lines and tubes: The endotracheal tube and feeding tube are grossly stable as visualized. IMPRESSION: 1. Stable to slight worsening diffuse bilateral airspace disease with cavitary lesions bilaterally consistent with either an atypical multifocal infectious or potentially neoplastic process. 2. Grossly stable life support lines and tubes.
[2019-01-13] MEDS ORDERED: CALCIUM ACETATE 667 MG CAPSULE NG ONE (09:30)
[2019-01-13] MEDS: GUAIFENESIN 600 MG TABLET.SA PO SCH ×2 (09:32→21:59)
[2019-01-13] MEDS ORDERED: ACETAMINOPHEN SOLN 325 MG/10.15 ML UDCUP ONE ×2 (09:36→12:15)
[2019-01-13] MEDS: ACETAMINOPHEN 325 MG TABLET PO PRN ×2 (09:39→12:20)
[2019-01-13] MEDS: VANCOMYCIN HCL 500 MG in DEXTROSE 5%-WATER 100 ML IV SCH (09:39)
[2019-01-13] MEDS: ALBUMIN HUMAN 12.5 GM/50 ML RTUINJ IV SCH ×2 (09:40→11:07)
[2019-01-13] MEDS: FAMOTIDINE INJ/PF 20 MG/2 ML SDV IV SCH ×2 (09:40→22:10)
[2019-01-13] MEDS ORDERED: METOPROLOL TARTRATE 25 MG TABLET PO SCH ×2 (10:00→22:00)
[2019-01-13] MEDS ORDERED: ESMOLOL HCL/SOD CL 2,500 MG/250 ML RTUINJ IV PRN (10:43)
--- NOTE | 2019-01-13 11:09 | PDOC PROGRESS REPORT ---
Subjective Progress Note for:: 01/13/19 Subjective:: Patient intubated and sedated. Was on rocuronium but this is been tapered off. He is unresponsive to verbal or painful stimuli at this point. Reason For Visit: PNEUMONIA Sepsis present on admission Gram-positive cocci bacteremia Physical Exam Vital Signs: Temp Pulse Resp BP Pulse Ox 101.1 F H 137 H 24 H 103/64 93 01/13/19 08:00 01/13/19 08:23 01/13/19 08:23 01/13/19 08:00 01/13/19 08:23 Intake & Output 01/12/19 01/13/19 01/14/19 06:59 06:59 06:59 Intake Total 5084 1554 Output Total 985 0 Balance 4099 1554 Weight 69 kg General appearance: PRESENT: no acute distress, well-developed, other - Intub ated and sedated Head exam: PRESENT: atraumatic, normocephalic Eye exam: PRESENT: conjunctiva pale, PERRLA - Pupils equal and round. Sluggish reaction to light., scleral icterus Ear exam: PRESENT: normal external ear exam Mouth exam: PRESENT: other - Endotracheal tube and orogastric tube in place. Neck exam: ABSENT: carotid bruit, JVD, lymphadenopathy Respiratory exam: PRESENT: rhonchi - Coarse rhonchi diffusely bilaterally, symmetrical. ABSENT: rales, wheezes Cardiovascular exam: PRESENT: +S1, +S2, tachycardia Pulses: PRESENT: normal radial pulses, normal dorsalis pedis pul GI/Abdominal exam: PRESENT: normal bowel sounds, soft, other - Orogastric tube in place. ABSENT: distended, tenderness Rectal exam: PRESENT: deferred Gentrourinary exam: PRESENT: indwelling catheter Extremities exam: ABSENT: calf tenderness, pedal edema Musculoskeletal exam: PRESENT: normal inspection Neurological exam: PRESENT: other - Unresponsive. ABSENT: awake Psychiatric exam: ABSENT: agitated Focused psych exam: ABSENT: restlessness Skin exam: PRESENT: other - Slightly jaundiced. ABSENT: normal color Results Laboratory Results: 01/13/19 04:30 01/13/19 04:30 01/12/19 01/12/19 01/12/19 12:12 12:12 12:12 WBC 29.8 H RBC 4.29 L Hgb 11.8 L Hct 34.6 L MCV 81 MCH 27.6 MCHC 34.2 RDW 16.0 H Plt Count 117 L Seg Neutrophils % Not Reportable Lymphocytes % Not Reportable Monocytes % Not Reportable Eosinophils % Not Reportable Basophils % Not Reportable Absolute Neutrophils Not Reportable Absolute Lymphocytes Not Reportable Absolute Monocytes Not Reportable Absolute Eosinophils Not Reportable Absolute Basophils Not Reportable Carbonic Acid HCO3/H2CO3 Ratio ABG pH ABG pCO2 ABG pO2 ABG HCO3 ABG O2 Saturation ABG Base Excess VBG pH VBG pCO2 VBG HCO3 VBG Base Excess FiO2 Sodium 122.8 L Potassium 4.8 Chloride 85 L Carbon Dioxide 23 Anion Gap 15 BUN 56 H Creatinine 1.53 H Est GFR ( Amer) > 60 Est GFR (Non-Af Amer) 50 L Glucose 131 H Lactic Acid Calcium 8.0 L Phosphorus Magnesium 2.6 H Total Bilirubin 2.8 H AST 203 H ALT 155 H Alkaline Phosphatase 184 H Total Protein 8.2 Albumin 2.9 L TSH 2.09 Urine Color Urine Appearance Urine pH Ur Specific [place] Urine Protein Urine Glucose (UA) Urine Ketones Urine Blood Urine Nitrite Ur Leukocyte Esterase Urine WBC (Auto) Urine RBC (Auto) 01/12/19 01/12/19 01/12/19 12:12 12:20 14:46 WBC RBC Hgb Hct MCV MCH MCHC RDW Plt Count Seg Neutrophils % Lymphocytes % Monocytes % Eosinophils % Basophils % Absolute Neutrophils Absolute Lymphocytes Absolute Monocytes Absolute Eosinophils Absolute Basophils Carbonic Acid HCO3/H2CO3 Ratio ABG pH ABG pCO2 ABG pO2 ABG HCO3 ABG O2 Saturation ABG Base Excess VBG pH 7.44 H VBG pCO2 32.8 L VBG HCO3 21.8 VBG Base Excess -1.6 FiO2 Sodium Potassium Chloride Carbon Dioxide Anion Gap BUN Creatinine Est GFR ( Amer) Est GFR (Non-Af Amer) Glucose Lactic Acid 3.2 H Calcium Phosphorus Magnesium Total Bilirubin AST ALT Alkaline Phosphatase Total Protein Albumin TSH Urine Color YELLOW Urine Appearance SLIGHTLY-CLOUDY Urine pH 5.0 Ur Specific [place] 1.015 Urine Protein NEGATIVE Urine Glucose (UA) NEGATIVE Urine Ketones NEGATIVE Urine Blood MODERATE H Urine Nitrite NEGATIVE Ur Leukocyte Esterase NEGATIVE Urine WBC (Auto) 7 Urine RBC (Auto) 4 01/12/19 01/12/19 01/12/19 15:20 17:55 17:55 WBC RBC Hgb Hct MCV MCH MCHC RDW Plt Count Seg Neutrophils % Lymphocytes % Monocytes % Eosinophils % Basophils % Absolute Neutrophils Absolute Lymphocytes Absolute Monocytes Absolute Eosinophils Absolute Basophils Carbonic Acid 0.81 L 1.78 H HCO3/H2CO3 Ratio 23:1 12:1 ABG pH 7.48 H 7.18 L* ABG pCO2 26.9 L 59.3 H ABG pO2 69.1 L 70.6 L ABG HCO3 19.4 L 21.8 ABG O2 Saturation 95.2 89.6 L ABG Base Excess -3.1 -6.8 VBG pH VBG pCO2 VBG HCO3 VBG Base Excess FiO2 4LNC 90% Sodium Potassium Chloride Carbon Dioxide Anion Gap BUN Creatinine Est GFR ( Amer) Est GFR (Non-Af Amer) Glucose Lactic Acid 2.5 H Calcium Phosphorus Magnesium Total Bilirubin AST ALT Alkaline Phosphatase Total Protein Albumin TSH Urine Color Urine Appearance Urine pH Ur Specific [place] Urine Protein Urine Glucose (UA) Urine Ketones Urine Blood Urine Nitrite Ur Leukocyte Esterase Urine WBC (Auto) Urine RBC (Auto) 01/12/19 01/12/19 01/13/19 19:42 22:40 00:51 WBC RBC Hgb Hct MCV MCH MCHC RDW Plt Count Seg Neutrophils % Lymphocytes % Monocytes % Eosinophils % Basophils % Absolute Neutrophils Absolute Lymphocytes Absolute Monocytes Absolute Eosinophils Absolute Basophils Carbonic Acid 1.26 1.35 HCO3/H2CO3 Ratio 20:1 17:1 ABG pH 7.40 7.34 L ABG pCO2 41.8 45.0 ABG pO2 225.7 H 77.0 L ABG HCO3 25.3 H 23.5 ABG O2 Saturation 99.5 H 94.6 ABG Base Excess 0.4 -2.4 VBG pH VBG pCO2 VBG HCO3 VBG Base Excess FiO2 100% 35% Sodium Potassium Chloride Carbon Dioxide Anion Gap BUN Creatinine Est GFR ( Amer) Est GFR (Non-Af Amer) Glucose Lactic Acid 2.8 H Calcium Phosphorus Magnesium Total Bilirubin AST ALT Alkaline Phosphatase Total Protein Albumin TSH Urine Color Urine Appearance Urine pH Ur Specific [place] Urine Protein Urine Glucose (UA) Urine Ketones Urine Blood Urine Nitrite Ur Leukocyte Esterase Urine WBC (Auto) Urine RBC (Auto) 01/13/19 01/13/19 01/13/19 04:30 04:30 04:30 WBC 26.5 H RBC 4.01 L Hgb 10.8 L Hct 32.8 L MCV 82 MCH 27.0 MCHC 33.1 RDW 15.7 H Plt Count 78 L Seg Neutrophils % Not Reportable Lymphocytes % Not Reportable Monocytes % Not Reportable Eosinophils % Not Reportable Basophils % Not Reportable Absolute Neutrophils Not Reportable Absolute Lymphocytes Not Reportable Absolute Monocytes Not Reportable Absolute Eosinophils Not Reportable Absolute Basophils Not Reportable Carbonic Acid HCO3/H2CO3 Ratio ABG pH ABG pCO2 ABG pO2 ABG HCO3 ABG O2 Saturation ABG Base Excess VBG pH VBG pCO2 VBG HCO3 VBG Base Excess FiO2 Sodium 136.8 L Potassium 4.5 Chloride 103 Carbon Dioxide 23 Anion Gap 11 BUN 48 H Creatinine 1.07 Est GFR ( Amer) > 60 Est GFR (Non-Af Amer) > 60 Glucose 165 H Lactic Acid 2.8 H Calcium 7.2 L Phosphorus 7.3 H Magnesium 2.7 H Total Bilirubin 1.9 H AST 268 H ALT 157 H Alkaline Phosphatase 123 Total Protein 6.0 L Albumin 1.9 L TSH Urine Color Urine Appearance Urine pH Ur Specific [place] Urine Protein Urine Glucose (UA) Urine Ketones Urine Blood Urine Nitrite Ur Leukocyte Esterase Urine WBC (Auto) Urine RBC (Auto) 01/13/19 05:00 WBC RBC Hgb Hct MCV MCH MCHC RDW Plt Count Seg Neutrophils % Lymphocytes % Monocytes % Eosinophils % Basophils % Absolute Neutrophils Absolute Lymphocytes Absolute Monocytes Absolute Eosinophils Absolute Basophils Carbonic Acid 1.59 H HCO3/H2CO3 Ratio 16:1 ABG pH 7.30 L ABG pCO2 52.7 H ABG pO2 62.0 L ABG HCO3 25.6 H ABG O2 Saturation 89.2 L ABG Base Excess -1.3 VBG pH VBG pCO2 VBG HCO3 VBG Base Excess FiO2 30% Sodium Potassium Chloride Carbon Dioxide Anion Gap BUN Creatinine Est GFR ( Amer) Est GFR (Non-Af Amer) Glucose Lactic Acid Calcium Phosphorus Magnesium Total Bilirubin AST ALT Alkaline Phosphatase Total Protein Albumin TSH Urine Color Urine Appearance Urine pH Ur Specific [place] Urine Protein Urine Glucose (UA) Urine Ketones Urine Blood Urine Nitrite Ur Leukocyte Esterase Urine WBC (Auto) Urine RBC (Auto) 01/12/19 01/12/19 12:12 12:12 Creatine Kinase 41 L CK-MB (CK-2) 1.13 Troponin I < 0.012 Impressions: Chest CT 01/12/19 15:45 IMPRESSION: Extensive airspace disease in both lungs with cavitation. Multicentric neoplasm versus atypical infectious process. Fairly dense airspace disease in the lower lobes. Chest X-Ray 01/13/19 06:00 IMPRESSION: 1. Stable to slight worsening diffuse bilateral airspace disease with cavitary lesions bilaterally consistent with either an atypical multifocal infectious or potentially neoplastic process. 2. Grossly stable life support lines and tubes. Assessment and Plan - Diagnosis (1) Sepsis due to pneumonia Is this a current diagnosis for this admission?: Yes Plan: Gram-positive cocci isolated in the blood. Pneumonia with multiple cavitary lesions most likely a Staphylococcus organism. Await final culture and sensitivities before changing antibiotics. Continue support with fluids, pressors and I have added IV albumin because of his serum albumin of 1.9. Lactic acid is still greater than 2.0 but it is improving. Will continue to check until normal. (2) Acute respiratory failure with hypoxia Is this a current diagnosis for this admission?: Yes Plan: Continue mechanical ventilation. Currently on IMV with a tidal volume of 550, rate of 24 and PEEP of 8. FiO2 is 45%. Initiate weaning when appropriate. Not likely to begin weaning for several days. (3) Multifocal pneumonia Is this a current diagnosis for this admission?: Yes Plan: CT scan reveals multiple cavitary lesions. Significant consolidation bilaterally. Most likely a Staphylococcus considering his history of IV drug use. The pneumonia is extremely diffuse and likely has been developing over many weeks. Continue vancomycin and Zosyn until sensitivities available. We will narrow the spectrum of antibiotics as soon as the identification and sensitivities are completed. (4) Gram-positive cocci bacteremia Is this a current diagnosis for this admission?: Yes Plan: Gram-positive cocci noted on Gram stain. Both sets of blood cultures. Continue vancomycin and Zosyn as above. (5) Acute renal injury due to sepsis Is this a current diagnosis for this admission?: Yes Plan: GFR is normal. The serum creatinine is back in the normal range with extremely aggressive hydration. Continue to monitor renal function. (6) Acute hepatitis Is this a current diagnosis for this admission?: Yes Plan: Serologies for viral hepatitis are pending. He is high risk with his IV drug use. The sepsis certainly could have caused hepatic injury. Continue to monitor liver functions with liver panel and coagulation studies. (7) Hyponatremia Is this a current diagnosis for this admission?: Yes Plan: Significantly improved. Initial low sodium most likely due to the pneumonia with metabolic derangement. Continue to monitor serum sodium. Adjust treatment plan as indicated. (8) Intravenous drug abuse, continuous Is this a current diagnosis for this admission?: Yes Plan: Will need to monitor for evidence/signs of withdrawal. Urine drug screen was positive for opiates. The results for amphetamines was affected by other substances and therefore not finalized. By his own admission the patient uses methamphetamine. (9) Leukocytosis Qualifiers: Leukocytosis type: bandemia Qualified Code(s): D72.825 - Bandemia Is this a current diagnosis for this admission?: Yes Plan: With the initiation of antibiotic therapy his white blood cell count is down to 26,000. I expect ongoing improvement with his antibiotic therapy. (10) Hyperphosphatemia Is this a current diagnosis for this admission?: Yes Plan: Serum phosphorus was greater than 7.0. I will give several doses of PhosLo and continue to monitor the serum phosphorus. (11) Nutritional deficiency Is this a current diagnosis for this admission?: Yes Plan: It is difficult to know about the patient's weight loss. 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 His serum albumin is low at 1.9 and this could be a reflection of his current illness which likely took many weeks to get to this level. We will initiate tub e feedings early to provide nutritional support for his severely acute illness (12) Dry eyes, bilateral Is this a current diagnosis for this admission?: Yes Plan: The patient's eyes do not shut completely. They are exposed to air in his current state. We will apply eyedrops 4 times a day to maintain eye moisture. (13) Anemia, iron deficiency, inadequate dietary intake Is this a current diagnosis for this admission?: Yes Plan: The patient has a borderline low MCV. His hemoglobin is 11. We will check iron studies. Based on his lifestyle habits he is nutritional intake has probably been limited. Once iron studies available we will replete if indicated. Likewise his B12 and folic acid levels will be checked. - Time Time Spent with patient: 35 or more minutes Medications reviewed and adjusted accordingly: Yes - Inpatient Certification Based on my medical assessment, after consideration of the patient's comorbidities, presenting symptoms, or acuity I expect that the services needed warrant INPATIENT care.: Yes I certify that my determination is in accordance with my understanding of Medicare's requirements for reasonable and necessary INPATIENT services [42 CFR 412.3e].: Yes Medical Necessity: Need Close Monitoring Due to Risk of Patient Decompensation, Need For IV Fluids, Need for Nebulizer Therapy and Monitoring of Response, Need for IV Antibiotics
--- NOTE | 2019-01-13 11:11 | Operative Report ---
Bedside Procedure - History of Present Illness History of Present Illness: DAWSON SQUIRES is a 43 year old male septic shock possible endocarditis Indication for Procedure: vasoatcive meds Date: 01/13/19 Surgeon: CHELLY SUBRAMANIAN - Central Line Right Internal jugular Time completed: 11:10 Consent obtained: Yes Central line pre-insertion: Sterile PPE donned, Betadine prep applied, Chloraprep applied, Sterile drapes applied Central line lumen type: Triple Anesthetic type: 1% Lidocaine Ultrasound guided: Yes Line secured with sutures: Yes Central line post-insertion: Blood return from lumens, Biopatch applied, Hernandez tured, Sterile dressing applied, Position confirmed w/ CXR Complications: No
[2019-01-13 11:53] LABS: ARTERIAL BLOOD BASE EXCESS -6.5 mmol/L; ARTERIAL BLOOD H2CO3 1.61 mmol/L (1.05-1.35); ARTERIAL BLOOD HCO3 21.4 mmol/L (20-24); ARTERIAL BLOOD O2 SATURATION 85.7 % (94-98); ARTERIAL BLOOD PCO2 53.4 mmHg (35-45); ARTERIAL BLOOD PH 7.22 (7.35-7.45); ARTERIAL BLOOD PO2 60.2 mmHg (80-100)
[2019-01-13 11:54] LABS: ARTERIAL BLOOD FIO2 45%
--- NOTE | 2019-01-13 11:56 | RADIOLOGY REPORT (SQ) ---
EXAM DESCRIPTION: CHEST SINGLE VIEW COMPLETED DATE/TIME: 01/13/2019 11:34 am REASON FOR STUDY: Central line placement COMPARISON: Earlier same day. NUMBER OF VIEWS: One view. TECHNIQUE: Single frontal radiographic image of the chest acquired. LIMITATIONS: None. FINDINGS: LUNGS AND PLEURA: Bilateral cavitary airspace disease not significantly changed. No pneum othorax. MEDIASTINUM AND HEART: Stable heart size and mediastinal structures. SUPPORT DEVICES: Unchanged position of nasogastric and endotracheal tubes. Placement of a right IJ c entral with tip overlying SVC. BONY STRUCTURES: No acute findings. HARDWARE: None. OTHER: No other significant finding. IMPRESSION: Interval line placement. No pneumothorax. Reading location - IP/workstation name: [email or web address]
[2019-01-13] MEDS ORDERED: VASOPRESSIN INJ 20 UNIT/1 ML VIAL ONE (12:03)
[2019-01-13] MEDS: CARBOXYMETHYLCELLULOSE SOD 0.5% 0.4 ML DROPERETTE OU SCH ×3 (12:19→23:58)
[2019-01-13 12:26] LABS: ABSOLUTE RETICS # 0.028 10^6/uL (0.028-0.122); RETICULOCYTE COUNT (AUTO) 0.69 % (0.66-2.85)
[2019-01-13] MEDS ORDERED: DEXTROSE 5%-WATER 250 ML with VASOPRESSIN 100 UNIT IV PRN ×2 (12:32)
--- NOTE | 2019-01-13 13:28 | PDOC CONSULTATION ---
Consultation Consult Date: 01/12/19 Attending physician:: GILBERT SANDOVAL Consult reason:: Septic shock History of Present Illness Admission Date/PCP: 01/12/19 15:18 History of Present Illness: DAWSON SQUIRES is a 43 year old male presenting confused increasing shortness of breath found to be hypoxic with a lateral patchy infiltrate suspicious for septic emboli. Patient and his friend admit that they have done venous drugs in the past. He is currently intubated in ICU in the ICU and on vasopressor agents Past Medical History Cardiac Medical History: Reports: None Denies: Congestive Heart Failure, Coronary Artery Disease, Myocardial Infarction, Hypertension, Pulmonary Embolism Pulmonary Medical History: Reports: None Denies: Asthma, Bronchitis, Chronic Obstructive Pulmonary Disease (COPD), Intubation EENT Medical History: Reports: None Neurological Medical History: Reports: None Endocrine Medical History: Reports: None Renal/ Medical History: Reports: None Malignancy Medical History: Reports: None GI Medical History: Reports: None Musculoskeltal Medical History: Reports: None Skin Medical History: Reports: None Psychiatric Medical History: Reports: Depression, Substance Abuse, Tobacco Dependency Hematology: Reports: None Infectious Medical History: Reports: None Past Surgical History Past Surgical History: Reports: None Social History Information Source: [facility] Records Lives with: Family Smoking Status: Former Smoker Frequency of Alcohol Use: None Hx Recreational Drug Use: Yes Drugs: Other - Speed and methamphetamine Hx Prescription Drug Abuse: No - Advance Directive Resuscitation Status: Full Code Family History Parental Family History Reviewed: No Children Family History Reviewed: No Sibling(s) Family History Reviewed.: No Medication/Allergy Home Medications: No Home Medications 01/12/19 Allergies/Adverse Reactions: No Known Allergies Allergy (Verified 06/18/12 15:02) Review of Systems ROS unobtainable: Due to endotracheal tube Physical Exam Vital Signs: Temp Pulse Resp BP Pulse Ox 100.0 F 125 H 47 H 98/70 L 88 L 01/12/19 16:01 01/12/19 12:11 01/12/19 16:01 01/12/19 16:00 01/12/19 16:01 Intake & Output 01/11/19 01/12/19 01/13/19 06:59 06:59 06:59 Intake Total 3000 Balance 3000 Weight 63.503 kg General appearance: PRESENT: no acute distress, disheveled, well-developed, well-nourished. ABSENT: cooperative Head exam: PRESENT: atraumatic, normocephalic Eye exam: PRESENT: conjunctiva pale. ABSENT: EOMI, nystagmus, periorbital swelling Mouth exam: PRESENT: dry mucosa, neck supple, tongue midline, other - Endotracheal tube Neck exam: ABSENT: carotid bruit, full ROM, JVD, lymphadenopathy, meningismus, tenderness, thyromegaly, tracheal deviation, tracheostomy, other Respiratory exam: PRESENT: decreased breath sounds, prolonged expiratory phas, rales, rhonchi, unlabored. ABSENT: retraction, stridor Cardiovascular exam: PRESENT: RRR, +S1, +S2, tachycardia Pulses: PRESENT: normal radial pulses GI/Abdominal exam: PRESENT: soft. ABSENT: tenderness Gentrourinary exam: PRESENT: indwelling catheter Extremities exam: ABSENT: calf tenderness, clubbing, joint swelling, pedal edema Musculoskeletal exam: ABSENT: ambulatory, deformity, dislocation Neurological exam: ABSENT: awake Skin exam: PRESENT: dry, warm Results Laboratory Results: 01/12/19 12:12 01/12/19 12:12 01/12/19 01/12/19 01/12/19 12:12 12:12 12:12 WBC 29.8 H RBC 4.29 L Hgb 11.8 L Hct 34.6 L MCV 81 MCH 27.6 MCHC 34.2 RDW 16.0 H Plt Count 117 L Seg Neutrophils % Not Reportable Lymphocytes % Not Reportable Monocytes % Not Reportable Eosinophils % Not Reportable Basophils % Not Reportable Absolute Neutrophils Not Reportable Absolute Lymphocytes Not Reportable Absolute Monocytes Not Reportable Absolute Eosinophils Not Reportable Absolute Basophils Not Reportable Carbonic Acid HCO3/H2CO3 Ratio ABG pH ABG pCO2 ABG pO2 ABG HCO3 ABG O2 Saturation ABG Base Excess VBG pH VBG pCO2 VBG HCO3 VBG Base Excess FiO2 Sodium 122.8 L Potassium 4.8 Chloride 85 L Carbon Dioxide 23 Anion Gap 15 BUN 56 H Creatinine 1.53 H Est GFR ( Amer) > 60 Est GFR (Non-Af Amer) 50 L Glucose 131 H Lactic Acid Calcium 8.0 L Magnesium 2.6 H Total Bilirubin 2.8 H AST 203 H ALT 155 H Alkaline Phosphatase 184 H Total Protein 8.2 Albumin 2.9 L TSH 2.09 Urine Color Urine Appearance Urine pH Ur Specific [place] Urine Protein Urine Glucose (UA) Urine Ketones Urine Blood Urine Nitrite Ur Leukocyte Esterase Urine WBC (Auto) Urine RBC (Auto) 01/12/19 01/12/19 01/12/19 12:12 12:20 14:46 WBC RBC Hgb Hct MCV MCH MCHC RDW Plt Count Seg Neutrophils % Lymphocytes % Monocytes % Eosinophils % Basophils % Absolute Neutrophils Absolute Lymphocytes Absolute Monocytes Absolute Eosinophils Absolute Basophils Carbonic Acid HCO3/H2CO3 Ratio ABG pH ABG pCO2 ABG pO2 ABG HCO3 ABG O2 Saturation ABG Base Excess VBG pH 7.44 H VBG pCO2 32.8 L VBG HCO3 21.8 VBG Base Excess -1.6 FiO2 Sodium Potassium Chloride Carbon Dioxide Anion Gap BUN Creatinine Est GFR ( Amer) Est GFR (Non-Af Amer) Glucose Lactic Acid 3.2 H Calcium Magnesium Total Bilirubin AST ALT Alkaline Phosphatase Total Protein Albumin TSH Urine Color YELLOW Urine Appearance SLIGHTLY-CLOUDY Urine pH 5.0 Ur Specific [place] 1.015 Urine Protein NEGATIVE Urine Glucose (UA) NEGATIVE Urine Ketones NEGATIVE Urine Blood MODERATE H Urine Nitrite NEGATIVE Ur Leukocyte Esterase NEGATIVE Urine WBC (Auto) 7 Urine RBC (Auto) 4 01/12/19 15:20 WBC RBC Hgb Hct MCV MCH MCHC RDW Plt Count Seg Neutrophils % Lymphocytes % Monocytes % Eosinophils % Basophils % Absolute Neutrophils Absolute Lymphocytes Absolute Monocytes Absolute Eosinophils Absolute Basophils Carbonic Acid 0.81 L HCO3/H2CO3 Ratio 23:1 ABG pH 7.48 H ABG pCO2 26.9 L ABG pO2 69.1 L ABG HCO3 19.4 L ABG O2 Saturation 95.2 ABG Base Excess -3.1 VBG pH VBG pCO2 VBG HCO3 VBG Base Excess FiO2 4LNC Sodium Potassium Chloride Carbon Dioxide Anion Gap BUN Creatinine Est GFR ( Amer) Est GFR (Non-Af Amer) Glucose Lactic Acid Calcium Magnesium Total Bilirubin AST ALT Alkaline Phosphatase Total Protein Albumin TSH Urine Color Urine Appearance Urine pH Ur Specific [place] Urine Protein Urine Glucose (UA) Urine Ketones Urine Blood Urine Nitrite Ur Leukocyte Esterase Urine WBC (Auto) Urine RBC (Auto) 01/12/19 01/12/19 12:12 12:12 Creatine Kinase 41 L CK-MB (CK-2) 1.13 Troponin I < 0.012 Assessment & Plan - Diagnosis (1) Acute respiratory failure with hypoxia Is this a current diagnosis for this admission?: Yes Plan: Oxygenating and ventilating as needed (2) Gram-positive cocci bacteremia Is this a current diagnosis for this admission?: Yes Plan: 2 blood cultures positive covered with vancomycin (3) Intravenous drug abuse, continuous Is this a current diagnosis for this admission?: Yes Plan: Per history (4) Multifocal pneumonia Is this a current diagnosis for this admission?: Yes Plan: bilateral all lobes, suspicious endocarditis (5) Nutritional deficiency Is this a current diagnosis for this admission?: Yes Plan: Labs- All tests 24 hr 01/13/19 04:30 Total Protein 6.0 L Albumin 1.9 L (6) Sepsis due to pneumonia Is this a current diagnosis for this admission?: Yes Plan: Maximum vasopressor agent - Time Total Critical Time (Minutes): 65
[2019-01-13] MEDS: DEXTROSE 5%-WATER 250 ML with NOREPINEPHRINE BITARTRATE 4 MG IV PRN ×4 (13:30→19:42)
--- NOTE | 2019-01-13 13:30 | PDOC PROGRESS REPORT ---
Subjective Progress Note for:: 01/13/19 Subjective:: Intubated and sedated Reason For Visit: PNEUMONIA Physical Exam Vital Signs: Temp Pulse Resp BP Pulse Ox 101.1 F H 137 H 24 H 103/64 93 01/13/19 08:00 01/13/19 08:23 01/13/19 08:23 01/13/19 08:00 01/13/19 08:23 Intake & Output 01/12/19 01/13/19 01/14/19 06:59 06:59 06:59 Intake Total 5084 1418 Output Total 985 0 Balance 4099 1418 Weight 69 kg General appearance: PRESENT: no acute distress, disheveled, well-developed, well-nourished. ABSENT: cooperative Head exam: PRESENT: atraumatic, normocephalic Eye exam: PRESENT: conjunctiva pale. ABSENT: EOMI, nystagmus, periorbital swelling, scleral icterus Mouth exam: PRESENT: dry mucosa, neck supple, tongue midline, other - ET tube Neck exam: ABSENT: carotid bruit, full ROM, JVD, lymphadenopathy, meningismus, tenderness, thyromegaly, tracheal deviation, tracheostomy, other Respiratory exam: PRESENT: decreased breath sounds, prolonged expiratory phas, rales, rhonchi, wheezes. ABSENT: retraction, stridor Cardiovascular exam: PRESENT: RRR, +S1, +S2, tachycardia Pulses: PRESENT: normal radial pulses GI/Abdominal exam: PRESENT: soft. ABSENT: tenderness Gentrourinary exam: PRESENT: indwelling catheter Extremities exam: ABSENT: calf tenderness, clubbing, full ROM, joint swelling Musculoskeletal exam: ABSENT: ambulatory, deformity, dislocation Neurological exam: ABSENT: awake Skin exam: PRESENT: dry, warm Results Laboratory Results: 01/13/19 04:30 01/13/19 04:30 01/12/19 01/12/19 01/12/19 12:12 12:12 12:12 WBC 29.8 H RBC 4.29 L Hgb 11.8 L Hct 34.6 L MCV 81 MCH 27.6 MCHC 34.2 RDW 16.0 H Plt Count 117 L Seg Neutrophils % Not Reportable Lymphocytes % Not Reportable Monocytes % Not Reportable Eosinophils % Not Reportable Basophils % Not Reportable Absolute Neutrophils Not Reportable Absolute Lymphocytes Not Reportable Absolute Monocytes Not Reportable Absolute Eosinophils Not Reportable Absolute Basophils Not Reportable Carbonic Acid HCO3/H2CO3 Ratio ABG pH ABG pCO2 ABG pO2 ABG HCO3 ABG O2 Saturation ABG Base Excess VBG pH VBG pCO2 VBG HCO3 VBG Base Excess FiO2 Sodium 122.8 L Potassium 4.8 Chloride 85 L Carbon Dioxide 23 Anion Gap 15 BUN 56 H Creatinine 1.53 H Est GFR ( Amer) > 60 Est GFR (Non-Af Amer) 50 L Glucose 131 H Lactic Acid Calcium 8.0 L Phosphorus Magnesium 2.6 H Total Bilirubin 2.8 H AST 203 H ALT 155 H Alkaline Phosphatase 184 H Total Protein 8.2 Albumin 2.9 L TSH 2.09 Urine Color Urine Appearance Urine pH Ur Specific [place] Urine Protein Urine Glucose (UA) Urine Ketones Urine Blood Urine Nitrite Ur Leukocyte Esterase Urine WBC (Auto) Urine RBC (Auto) 01/12/19 01/12/19 01/12/19 12:12 12:20 14:46 WBC RBC Hgb Hct MCV MCH MCHC RDW Plt Count Seg Neutrophils % Lymphocytes % Monocytes % Eosinophils % Basophils % Absolute Neutrophils Absolute Lymphocytes Absolute Monocytes Absolute Eosinophils Absolute Basophils Carbonic Acid HCO3/H2CO3 Ratio ABG pH ABG pCO2 ABG pO2 ABG HCO3 ABG O2 Saturation ABG Base Excess VBG pH 7.44 H VBG pCO2 32.8 L VBG HCO3 21.8 VBG Base Excess -1.6 FiO2 Sodium Potassium Chloride Carbon Dioxide Anion Gap BUN Creatinine Est GFR ( Amer) Est GFR (Non-Af Amer) Glucose Lactic Acid 3.2 H Calcium Phosphorus Magnesium Total Bilirubin AST ALT Alkaline Phosphatase Total Protein Albumin TSH Urine Color YELLOW Urine Appearance SLIGHTLY-CLOUDY Urine pH 5.0 Ur Specific [place] 1.015 Urine Protein NEGATIVE Urine Glucose (UA) NEGATIVE Urine Ketones NEGATIVE Urine Blood MODERATE H Urine Nitrite NEGATIVE Ur Leukocyte Esterase NEGATIVE Urine WBC (Auto) 7 Urine RBC (Auto) 4 01/12/19 01/12/19 01/12/19 15:20 17:55 17:55 WBC RBC Hgb Hct MCV MCH MCHC RDW Plt Count Seg Neutrophils % Lymphocytes % Monocytes % Eosinophils % Basophils % Absolute Neutrophils Absolute Lymphocytes Absolute Monocytes Absolute Eosinophils Absolute Basophils Carbonic Acid 0.81 L 1.78 H HCO3/H2CO3 Ratio 23:1 12:1 ABG pH 7.48 H 7.18 L* ABG pCO2 26.9 L 59.3 H ABG pO2 69.1 L 70.6 L ABG HCO3 19.4 L 21.8 ABG O2 Saturation 95.2 89.6 L ABG Base Excess -3.1 -6.8 VBG pH VBG pCO2 VBG HCO3 VBG Base Excess FiO2 4LNC 90% Sodium Potassium Chloride Carbon Dioxide Anion Gap BUN Creatinine Est GFR ( Amer) Est GFR (Non-Af Amer) Glucose Lactic Acid 2.5 H Calcium Phosphorus Magnesium Total Bilirubin AST ALT Alkaline Phosphatase Total Protein Albumin TSH Urine Color Urine Appearance Urine pH Ur Specific [place] Urine Protein Urine Glucose (UA) Urine Ketones Urine Blood Urine Nitrite Ur Leukocyte Esterase Urine WBC (Auto) Urine RBC (Auto) 01/12/19 01/12/19 01/13/19 19:42 22:40 00:51 WBC RBC Hgb Hct MCV MCH MCHC RDW Plt Count Seg Neutrophils % Lymphocytes % Monocytes % Eosinophils % Basophils % Absolute Neutrophils Absolute Lymphocytes Absolute Monocytes Absolute Eosinophils Absolute Basophils Carbonic Acid 1.26 1.35 HCO3/H2CO3 Ratio 20:1 17:1 ABG pH 7.40 7.34 L ABG pCO2 41.8 45.0 ABG pO2 225.7 H 77.0 L ABG HCO3 25.3 H 23.5 ABG O2 Saturation 99.5 H 94.6 ABG Base Excess 0.4 -2.4 VBG pH VBG pCO2 VBG HCO3 VBG Base Excess FiO2 100% 35% Sodium Potassium Chloride Carbon Dioxide Anion Gap BUN Creatinine Est GFR ( Amer) Est GFR (Non-Af Amer) Glucose Lactic Acid 2.8 H Calcium Phosphorus Magnesium Total Bilirubin AST ALT Alkaline Phosphatase Total Protein Albumin TSH Urine Color Urine Appearance Urine pH Ur Specific [place] Urine Protein Urine Glucose (UA) Urine Ketones Urine Blood Urine Nitrite Ur Leukocyte Esterase Urine WBC (Auto) Urine RBC (Auto) 01/13/19 01/13/19 01/13/19 04:30 04:30 04:30 WBC 26.5 H RBC 4.01 L Hgb 10.8 L Hct 32.8 L MCV 82 MCH 27.0 MCHC 33.1 RDW 15.7 H Plt Count 78 L Seg Neutrophils % Not Reportable Lymphocytes % Not Reportable Monocytes % Not Reportable Eosinophils % Not Reportable Basophils % Not Reportable Absolute Neutrophils Not Reportable Absolute Lymphocytes Not Reportable Absolute Monocytes Not Reportable Absolute Eosinophils Not Reportable Absolute Basophils Not Reportable Carbonic Acid HCO3/H2CO3 Ratio ABG pH ABG pCO2 ABG pO2 ABG HCO3 ABG O2 Saturation ABG Base Excess VBG pH VBG pCO2 VBG HCO3 VBG Base Excess FiO2 Sodium 136.8 L Potassium 4.5 Chloride 103 Carbon Dioxide 23 Anion Gap 11 BUN 48 H Creatinine 1.07 Est GFR ( Amer) > 60 Est GFR (Non-Af Amer) > 60 Glucose 165 H Lactic Acid 2.8 H Calcium 7.2 L Phosphorus 7.3 H Magnesium 2.7 H Total Bilirubin 1.9 H AST 268 H ALT 157 H Alkaline Phosphatase 123 Total Protein 6.0 L Albumin 1.9 L TSH Urine Color Urine Appearance Urine pH Ur Specific [place] Urine Protein Urine Glucose (UA) Urine Ketones Urine Blood Urine Nitrite Ur Leukocyte Esterase Urine WBC (Auto) Urine RBC (Auto) 01/13/19 05:00 WBC RBC Hgb Hct MCV MCH MCHC RDW Plt Count Seg Neutrophils % Lymphocytes % Monocytes % Eosinophils % Basophils % Absolute Neutrophils Absolute Lymphocytes Absolute Monocytes Absolute Eosinophils Absolute Basophils Carbonic Acid 1.59 H HCO3/H2CO3 Ratio 16:1 ABG pH 7.30 L ABG pCO2 52.7 H ABG pO2 62.0 L ABG HCO3 25.6 H ABG O2 Saturation 89.2 L ABG Base Excess -1.3 VBG pH VBG pCO2 VBG HCO3 VBG Base Excess FiO2 30% Sodium Potassium Chloride Carbon Dioxide Anion Gap BUN Creatinine Est GFR ( Amer) Est GFR (Non-Af Amer) Glucose Lactic Acid Calcium Phosphorus Magnesium Total Bilirubin AST ALT Alkaline Phosphatase Total Protein Albumin TSH Urine Color Urine Appearance Urine pH Ur Specific [place] Urine Protein Urine Glucose (UA) Urine Ketones Urine Blood Urine Nitrite Ur Leukocyte Esterase Urine WBC (Auto) Urine RBC (Auto) 01/12/19 01/12/19 12:12 12:12 Creatine Kinase 41 L CK-MB (CK-2) 1.13 Troponin I < 0.012 Impressions: Chest CT 01/12/19 15:45 IMPRESSION: Extensive airspace disease in both lungs with cavitation. Multicentric neoplasm versus atypical infectious process. Fairly dense airspace disease in the lower lobes. Chest X-Ray 01/13/19 06:00 IMPRESSION: 1. Stable to slight worsening diffuse bilateral airspace disease with cavitary lesions bilaterally consistent with either an atypical multifocal infectious or potentially neoplastic process. 2. Grossly stable life support lines and tubes. Assessment & Plan - Diagnosis (1) Acute respiratory failure with hypoxia Is this a current diagnosis for this admission?: Yes Plan: Oxygenating and ventilating as needed (2) Gram-positive cocci bacteremia Is this a current diagnosis for this admission?: Yes Plan: 2 blood cultures positive covered with vancomycin (3) Intravenous drug abuse, continuous Is this a current diagnosis for this admission?: Yes Plan: Per history (4) Multifocal pneumonia Is this a current diagnosis for this admission?: Yes Plan: bilateral all lobes, suspicious endocarditis (5) Nutritional deficiency Is this a current diagnosis for this admission?: Yes Plan: Labs- All tests 24 hr 01/13/19 04:30 Total Protein 6.0 L Albumin 1.9 L (6) Sepsis due to pneumonia Is this a current diagnosis for this admission?: Yes Plan: Maximum vasopressor agent - Time Total Critical Time (Minutes): 45
[2019-01-13] MEDS: NOREPINEPHRINE BITARTRATE INJ/PF 4 MG/4 ML SDV IV ONE ×2 (13:31→14:43)
[2019-01-13] MEDS ORDERED: NORMAL SALINE 1000 ML 1,000 ML IV ONE ×2 (14:00→17:00)
[2019-01-13] MEDS: CALCIUM ACETATE 667 MG CAPSULE NG SCH ×2 (14:22→17:02)
[2019-01-13] MEDS ORDERED: VANCOMYCIN HCL 750 MG in DEXTROSE 5%-WATER 250 ML IV ONE (14:30)
[2019-01-13] MEDS: NORMAL SALINE 1000 ML 1,000 ML IV PRN ×2 (17:12→22:09)
[2019-01-13] MEDS ORDERED: RINGERS SOLUTION,LACTATED 1,000 ML IV ONE (17:45)
--- NOTE | 2019-01-13 18:16 | Progress Note ---
Provider Note Provider Note: ID Consult Note Asked to review chart by Dr Rae. Spoke with him briefly earlier this afternoon via telephone. Pt not seen or examined. Mr Garcia is a 43 year old IV drug user who presented on 01/12 with c/o SOB worsening for one week. He had associated back discomfort that started 2 weeks ago. According to history obtainined by the ED provider, the patient had lost a significant amount of weight in the past month and also had a known history of drug use with visible track max on the arms. He was febrile, hypotensive, tachypneic, tachycardic and hypoxic. On exam pt was noted to have tenderness to percussion in the mid to lower thoracic back, bilateral rales and ronchi on lung exam, scleral icterus. Initial labs revealed evidence of multisystem organ dysfunction with hematological abnormalities (thrombocytopenia, anemia, leukocytosis), evidence of acute kidney injury, transaminitis, mildly elevated bilirubin, elevated lactic acid. Blood cultures have Gram positive cocci in clusters in both sets obtained on presentation. Tracheal aspirate also has Gram positive cocci in clusters. Urine culture also preliminarily has been reported to have GPCs growing. Imaging: CXR showed b/l multiple predominantly peripheral airspace opacities. CT scan of the chest showed extensive airspace disease in both lungs (particularly in the lower lobes) with cavitation. Pt was unable to tolerate a trial of BiPAP, prompting intubation. He has been admitted to the ICU where he has required multiple vasopressors. 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 - Pt is on vancomycin empirically, which is appropriate until the organism is identified and susceptibilites are available. - If identified as MSSA, would stop vancomycin and start IV cefazolin 2g q8h (provided CrCl remains >30). - Zosyn is not likely to be adding much here. No Gram negatives that have been found. Would discontinue Zosyn. - Echo is pending. - Would repeat blood cultures tomorrow or the day after. - When stable, would get MRI with contrast of the thoracic and lumbar spine. This is not an acute issue that needs to be pursued. - Most R heart IE is able to be managed medically, but cardiothoracic surgery consultation might be needed to consider surgical debridement if he has heart failure that is not responsive to medical management, a large vegetation and recurrent septic emboli where risk for further emboli would likely be poorly tolerated, or difficult to eradicate pathogen (persistent blood cultures >1 week despite appropriate medical therapy and no other source found). Ellis Interiano MD [facility] Infectious Diseases pager [phone]
--- NOTE | 2019-01-13 20:06 | XCELERA REPORT ---
[address] [address] Transthoracic Echocardiogram Report Name: DAWSON SQUIRES Age: 43 yrs Gender: Male : 1975 Patient Status: Inpatient Patient Location: ICU^611^A Study Date: 01/13/2019 05:46 PM Height: 64 in Weight: 140 lb BSA: 1.7 m2 Procedure: A two-dimensional transthoracic echocardiogram with color flow Doppler was performed. The study was technically difficult with many images being suboptimal in quality. Patient with significant tachycardia. Reason For Study: Assess heart valves Vegetations? History: Assess heart valves Vegetations / Endocarditis. Ordering Physician: GILBERT SANDOVAL Performed By: Erna Cardenas Interpretation Summary The left ventricle is normal in size. There is normal left ventricular wall thickness. No True apical 2 chamber views obtained.Hence cannot comment on the apical anterior , the basal anterior, the basal inferior and apical inferior murphy.The mid anterior , the mid inferior and the rest of the LV murphy contract normally. .Normal LVEF is normal and is greater than 65% in the limited views. Doppler measurements suggest impaired left ventricular relaxation, which is associated with grade I/IV or mild diastolic dysfunction There is no thrombus. The right ventricle is moderate to severely dilated. The right ventricular systolic function is moderate to severely reduced. The right atrium is mildly dilated. The left atrial size is normal. There is no evidence of mitral valve prolapse. Cannot entirely exclude a small vegetation on the anterior mitral valve leaflet tip. There is no mitral valve stenosis. Probably mild MR. No gross vegetation seen. There is no aortic valve stenosis No aortic regurgitation is present. There is no tricuspid stenosis. There is a severe amount of tricuspid regurgitation There is servere pulmonary hypertension by echo RVSP is gertaer than 95 with RA mean greater than 20. There is a mobile moderate to large vegetation on the tricuspid valve and seems to involve the anterio,septal and probably posterior leaflets. There is no pulmonic valvular regurgitation. The inferior vena cava appeared dilated and did not change with respiration (RAP > 20 mmHg) The aortic root is not well visualized but is probably normal size. Cannot exclude trace pericardial effusion. MMode/2D Measurements & Calculations RVDd: 2.9 cm LVIDd: 4.9 cm FS: 31.4 % Ao root diam: 2.9 cm IVSd: 0.78 cm LVIDs: 3.3 cm EDV(Teich): 110.7 ml Ao root area: 6.7 cm2 LVPWd: 0.91 cm ESV(Teich): 45.2 ml LA dimension: 2.9 cm EF(Teich): 59.2 % Doppler Measurements & Calculations MV E max carolann: MV P1/2t max carolann: Ao V2 max: LV V1 max P.3 cm/sec 60.9 cm/sec 121.2 cm/sec 3.7 mmHg MV A max carolann: MV P1/2t: 58.3 msec Ao max P.9 mmHg LV V1 max: 74.0 cm/sec MVA(P1/2t): 3.8 cm2 96.0 cm/sec MV E/A: 0.76 MV dec slope: 306.0 cm/sec2 MV dec time: 0.25 sec PA V2 max: TR max carolann: MV P1/2t-pr_phl: 101.0 cm/sec 430.0 cm/sec 58.3 msec PA max P.1 mmHgTR max P.0 mmHg Left Ventricle The left ventricle is normal in size. There is normal left ventricular wall thickness. No True apical 2 chamber views obtained.Hence cannot comment on the apical anterior , the basal anterior, the basal inferior and apical inferior murphy.The mid anterior , the mid inferior and the rest of the LV murphy contract normally. .Normal LVEF is normal and is greater than 65% in the limited views. Doppler measurements suggest impaired left ventricular relaxation, which is associated with grade I/IV or mild diastolic dysfunction. There is no thrombus. Right Ventricle The right ventricle is moderate to severely dilated. The right ventricular systolic function is moderate to severely reduced. Atria The right atrium is mildly dilated. The left atrial size is normal. Mitral Valve There is no evidence of mitral valve prolapse. Cannot entirely exclude a small vegetation on the anterior mitral valve leaflet tip. There is no mitral valve stenosis. Probably mild MR. Aortic Valve No gross vegetation seen. There is no aortic valve stenosis. No aortic regurgitation is present. Tricuspid Valve There is a mobile moderate to large vegetation on the tricuspid valve and seems to involve the anterio,septal and probably posterior leaflets. There is no tricuspid stenosis. There is a severe amount of tricuspid regurgitation. There is servere pulmonary hypertension by echo. RVSP is gertaer than 95 with RA mean greater than 20. Pulmonic Valve There is no pulmonic valvular stenosis. There is no pulmonic valvular regurgitation. Great Vessels The aortic root is not well visualized but is probably normal size. The inferior vena cava appeared dilated and did not change with respiration (RAP > 20 mmHg). Effusions Cannot exclude trace pericardial effusion. : GILBERT SANDOVAL > Mildred Wiggins
[2019-01-13 21:12] LABS: ARTERIAL BLOOD BASE EXCESS -15.1 mmol/L; ARTERIAL BLOOD H2CO3 1.55 mmol/L (1.05-1.35); ARTERIAL BLOOD HCO3 14.7 mmol/L (20-24); ARTERIAL BLOOD O2 SATURATION 87.7 % (94-98); ARTERIAL BLOOD PCO2 51.6 mmHg (35-45); ARTERIAL BLOOD PO2 73.2 mmHg (80-100); ARTERIAL BLOOD TOTAL CO2 16.3 mmol/L (23-27)
[2019-01-13 21:13] LABS: ARTERIAL BLOOD FIO2 45%
[2019-01-13 21:14] LABS: ARTERIAL BLOOD PH 7.07 (7.35-7.45)
[2019-01-13] MEDS: DEXTROSE 5%-WATER 1000 ML 1,000 ML with SODIUM BICARBONATE 100 MEQ IV PRN ×2 (21:57)
[2019-01-13] MEDS: VANCOMYCIN HCL 1,250 MG in DEXTROSE 5%-WATER 250 ML IV SCH (21:58)
[2019-01-14] MEDS: ALBUTEROL SULFATE 0.083% NEB 2.5 MG/3 ML AMPUL NEB SCH ×3 (01:12→13:44)
[2019-01-14 05:14] LABS: ARTERIAL BLOOD BASE EXCESS -13.1 mmol/L; ARTERIAL BLOOD H2CO3 1.41 mmol/L (1.05-1.35); ARTERIAL BLOOD HCO3 15.4 mmol/L (20-24); ARTERIAL BLOOD O2 SATURATION 99.3 % (94-98); ARTERIAL BLOOD PCO2 46.7 mmHg (35-45); ARTERIAL BLOOD PO2 249.5 mmHg (80-100); ARTERIAL BLOOD TOTAL CO2 16.9 mmol/L (23-27)
[2019-01-14 05:16] LABS: ARTERIAL BLOOD FIO2 100%
[2019-01-14 05:17] LABS: ARTERIAL BLOOD PH 7.14 (7.35-7.45)
[2019-01-14 05:20] LABS: HEMOGLOBIN 9.5 g/dL (13.5-17.0); MEAN CORPUSCULAR HEMOGLOBIN 26.8 pg (27.0-33.4); MEAN CORPUSCULAR HGB CONC 31.8 g/dL (32.0-36.0); MEAN CORPUSCULAR VOLUME 84 fl (80-97); RED BLOOD COUNT 3.56 10^6/uL (4.35-5.55); RED CELL DISTRIBUTION WIDTH 16.9 % (11.5-14.0)
[2019-01-14 05:21] LABS: INTERNATIONAL RATION (INR) 1.95; PROTHROMBIN TIME 23.2 SEC (11.4-15.4)
[2019-01-14 05:22] LABS: PARTIAL THROMBOPLASTIN TIME 32.8 SEC (23.5-35.8)
[2019-01-14] MEDS: MIDAZOLAM HCL 50 MG/100 ML RTUINJ IV PRN ×2 (05:44→11:22)
[2019-01-14] MEDS: DEXTROSE 5%-WATER 250 ML with PHENYLEPHRINE HCL 40 MG IV PRN ×4 (05:45→13:14)
[2019-01-14] MEDS: DEXTROSE 5%-WATER 250 ML with NOREPINEPHRINE BITARTRATE 4 MG IV PRN ×2 (05:45)
[2019-01-14] MEDS: CARBOXYMETHYLCELLULOSE SOD 0.5% 0.4 ML DROPERETTE OU SCH ×2 (05:46→11:36)
[2019-01-14] MEDS: PIPERACILLIN SODIUM/TAZOBACTAM 3.375 GM in NORMAL SALINE 100 ML IV SCH (05:46)
[2019-01-14] MEDS: HEPARIN SOD (PORCINE) 5,000 UNIT/ML 1 ML SYRINGE SUBCUT SCH ×2 (05:47→13:46)
[2019-01-14] MEDS: NORMAL SALINE 1000 ML 1,000 ML IV PRN ×2 (05:47→08:45)
[2019-01-14 05:56] LABS: ALBUMIN 1.8 g/dL (3.5-5.0); ALKALINE PHOSPHATASE 113 U/L (38-126); ANION GAP 12 (5-19); BILIRUBIN,DIRECT 2.2 mg/dL (0.0-0.4); BILIRUBIN,TOTAL 2.5 mg/dL (0.2-1.3); BLOOD UREA NITROGEN 58 mg/dL (7-20); CARBON DIOXIDE 18 mmol/L (22-30); CHLORIDE 102 mmol/L (98-107); GLUCOSE 221 mg/dL (75-110); IRON(TIBC) 109.1 ug/dL (49-181); PLATELET COUNT 68 10^3/uL (150-450); POTASSIUM 5.9 mmol/L (3.6-5.0); SODIUM 132.3 mmol/L (137-145); TOTAL PROTEIN 5.1 g/dL (6.3-8.2)
[2019-01-14 05:59] LABS: ABSOLUTE LYMPHOCYTES# (MANUAL) 1.2 10^3/uL (0.5-4.7); ABSOLUTE MONOCYTES # (MANUAL) 1.2 10^3/uL (0.1-1.4); ABSOLUTE NEUTROPHILS# (MANUAL) 27.7 10^3/uL (1.7-8.2); BAND NEUTROPHILS % (MANUAL) 9 % (3-5); BASOPHILS % (MANUAL) 0 % (0-2); EOSINOPHILS % (MANUAL) 0 % (0-6); LYMPHOCYTES % (MANUAL) 4 % (13-45); MONOCYTES % (MANUAL) 4 % (3-13); SEGMENTED NEUTROPHILS % (MAN) 83 % (42-78); TOTAL CELLS COUNTED 100
[2019-01-14 06:00] LABS: ANISOCYTOSIS 1+; HYPOCHROMASIA 1+
[2019-01-14 06:01] LABS: PLATELET COMMENT ADEQUATE; ROULEAUX SLIGHT
[2019-01-14 06:02] LABS: WHITE BLOOD COUNT 30.1 10^3/uL (4.0-10.5)
[2019-01-14 07:37] LABS: ALANINE AMINOTRANSFERASE 2479 U/L (21-72)
[2019-01-14 07:39] LABS: CALCIUM 6.1 mg/dL (8.4-10.2)
[2019-01-14 08:03] LABS: ASPARTATE AMINO TRANSFERASE 7692 U/L (17-59)
[2019-01-14] MEDS: CALCIUM ACETATE 667 MG CAPSULE NG SCH ×2 (09:12→13:47)
[2019-01-14] MEDS: FAMOTIDINE INJ/PF 20 MG/2 ML SDV IV SCH (09:12)
[2019-01-14] MEDS: GUAIFENESIN 600 MG TABLET.SA PO SCH (09:13)
[2019-01-14] MEDS: DEXTROSE 5%-WATER 1000 ML 1,000 ML with SODIUM BICARBONATE 100 MEQ IV PRN ×2 (09:13)
[2019-01-14] MEDS: VANCOMYCIN HCL 1,250 MG in DEXTROSE 5%-WATER 250 ML IV SCH (09:13)
[2019-01-14 09:39] LABS: HEPATITIS A AB IGM Negative (Negative); HEPATITIS B CORE AB IGM Negative (Negative); HEPATITS B SURFACE ANTIGEN Negative (Negative)
[2019-01-14] MEDS ORDERED: FUROSEMIDE INJ/PF 20 MG/2 ML SDV ONE (09:49)
[2019-01-14 10:12] LABS: FERRITIN > 10000.00 ng/mL (17.9-464.0)
[2019-01-14] MEDS ORDERED: FUROSEMIDE INJ/PF 20 MG/2 ML SDV IV ONE (10:30)
[2019-01-14 11:10] LABS: HEPATITIS C VIRUS ANTIBODY >11.0 s/co ratio (0.0-0.9)
[2019-01-14 11:19] LABS: PATH REVIEW PATHOLOGIST REVIEWED
[2019-01-14] MEDS: ALBUMIN HUMAN 12.5 GM/50 ML RTUINJ IV SCH ×2 (11:30→12:24)
--- NOTE | 2019-01-14 12:28 | PDOC CONSULTATION ---
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 History of Present Illness Admission Date/PCP: 01/12/19 15:18 History of Present Illness: History was gathered from review of notes and discussions with Dr. Sinclair/ Hospitalist in the ICU. The patient is extremely critical in the ICU in septic shock on multiple pressors and antibiotics. Mr DAWSON SQUIRES is a 43 year old was admitted with progressively increasing shortness of breath for approximately 1 week. Unsure if he had any fever or chills or coughing spells. Unfortunately he has a history of IV drug abuse for some time. When he came to the ER he was already in respiratory failure and was put on BiPAP and therefore history was limited as per perusal of notes mentions. He soon decompensated and went into septic shock and currently is intubated and sedated on 3 pressor agents. He is growing pansensitive staph aureus. He is hardly making any urine. He has evidences of multisystem organ failure. He had an TT Echocardiogram done which shows large vegetations on his tricuspid valve. Unable to quantify if any on his left heart valves. CT scan done shows multiple cavitations indicative of septic pulmonary embolization. Labs and medications were reviewed. Discussions were also done with the treating ICU nurse . Past Medical History Cardiac Medical History: Reports: None Denies: Coronary Artery Disease, Myocardial Infarction, Pulmonary Embolism Pulmonary Medical History: Reports: None Denies: Asthma, Bronchitis, Chronic Obstructive Pulmonary Disease (COPD), Intubation EENT Medical History: Reports: None Neurological Medical History: Reports: None Endocrine Medical History: Reports: None Renal/ Medical History: Reports: None Malignancy Medical History: Reports: None GI Medical History: Reports: None Musculoskeltal Medical History: Reports: None Skin Medical History: Reports: None Psychiatric Medical History: Reports: Depression, Substance Abuse, Tobacco Dependency Infectious Medical History: Reports: None Past Surgical History Past Surgical History: Reports: None Social History Lives with: Family Smoking Status: Former Smoker Frequency of Alcohol Use: None Hx Recreational Drug Use: Yes Drugs: Other - Speed and methamphetamine Hx Prescription Drug Abuse: No - Advance Directive Resuscitation Status: Full Code Family History Parental Family History Reviewed: No Children Family History Reviewed: No Sibling(s) Family History Reviewed.: No Medication/Allergy Home Medications: RX: No Home Medications 01/12/19 Allergies/Adverse Reactions: No Known Allergies Allergy (Verified 06/18/12 15:02) Review of Systems ROS unobtainable: Due to endotracheal tube - Chart review was done and discussions were done with the treating hospitalist and RN in the ICU. Physical Exam Vital Signs: Temp Pulse Resp BP Pulse Ox 99.1 F 109 H 30 H 108/67 100 01/14/19 10:26 01/14/19 10:00 01/14/19 10:26 01/14/19 10:26 01/14/19 10:26 Intake & Output 01/13/19 01/14/19 01/15/19 06:59 06:59 06:59 Intake Total 5084 73460 2062 Output Total 985 925 5 Balance 4099 9646 7 Weight 69 kg 78.4 kg Exam: Patient is intubated and sedated. He is on multiple pressors, antibiotics and IV fluids. Eye exam: PRESENT: EOMI, PERRLA Mouth exam: PRESENT: neck supple Neck exam: ABSENT: lymphadenopathy, meningismus, tenderness, thyromegaly, tracheal deviation Respiratory exam: PRESENT: clear to auscultation daljit. ABSENT: crackles Cardiovascular exam: PRESENT: +S1, +S2 GI/Abdominal exam: PRESENT: normal bowel sounds, soft. ABSENT: organomegaly, tenderness Extremities exam: ABSENT: pedal edema Neurological exam: ABSENT: altered Skin exam: PRESENT: other - Had puncture max on his right antecubital fossa. Do not see any skin manifestations of embolization.. ABSENT: cyanosis, eryt dave, mottled Results Laboratory Results: 01/14/19 04:55 01/14/19 04:55 01/13/19 01/13/19 01/13/19 04:30 16:40 20:40 WBC RBC Hgb Hct MCV MCH MCHC RDW Plt Count Seg Neutrophils % Lymphocytes % Monocytes % Eosinophils % Basophils % Absolute Neutrophils Absolute Lymphocytes Absolute Monocytes Absolute Eosinophils Absolute Basophils Retic Count (auto) 0.69 Absolute Retic 0.028 Carbonic Acid HCO3/H2CO3 Ratio ABG pH ABG pCO2 ABG pO2 ABG HCO3 ABG O2 Saturation ABG Base Excess FiO2 Sodium Potassium Chloride Carbon Dioxide Anion Gap BUN Creatinine Est GFR ( Amer) Est GFR (Non-Af Amer) Glucose Lactic Acid 5.4 H 6.4 H Calcium Iron TIBC % Saturation Ferritin Total Bilirubin AST ALT Alkaline Phosphatase Total Protein Albumin Vitamin B12 Folate 01/13/19 01/13/19 01/14/19 21:05 23:28 04:55 WBC RBC Hgb Hct MCV MCH MCHC RDW Plt Count Seg Neutrophils % Lymphocytes % Monocytes % Eosinophils % Basophils % Absolute Neutrophils Absolute Lymphocytes Absolute Monocytes Absolute Eosinophils Absolute Basophils Retic Count (auto) Absolute Retic Carbonic Acid 1.55 H HCO3/H2CO3 Ratio 9:1 ABG pH 7.07 L* ABG pCO2 51.6 H ABG pO2 73.2 L ABG HCO3 14.7 L ABG O2 Saturation 87.7 L ABG Base Excess -15.1 FiO2 45% Sodium 132.3 L Potassium 5.9 H Chloride 102 Carbon Dioxide 18 L Anion Gap 12 BUN 58 H Creatinine 2.95 H Est GFR ( Amer) 28 L Est GFR (Non-Af Amer) 24 L Glucose 221 H Lactic Acid 4.6 H Calcium 6.1 L* Iron 109.1 TIBC 110 L % Saturation 99 Ferritin > 04245.00 H Total Bilirubin 2.5 H AST 7692 H ALT 2479 H Alkaline Phosphatase 113 Total Protein 5.1 L Albumin 1.8 L Vitamin B12 > 1000.0 H Folate 19.40 01/14/19 01/14/19 01/14/19 04:55 04:55 10:35 WBC 30.1 H* RBC 3.56 L Hgb 9.5 L Hct 30.0 L MCV 84 MCH 26.8 L MCHC 31.8 L RDW 16.9 H Plt Count 68 L Seg Neutrophils % Not Reportable Lymphocytes % Not Reportable Monocytes % Not Reportable Eosinophils % Not Reportable Basophils % Not Reportable Absolute Neutrophils Not Reportable Absolute Lymphocytes Not Reportable Absolute Monocytes Not Reportable Absolute Eosinophils Not Reportable Absolute Basophils Not Reportable Retic Count (auto) Absolute Retic Carbonic Acid 1.41 H HCO3/H2CO3 Ratio 10:1 ABG pH 7.14 L* ABG pCO2 46.7 H ABG pO2 249.5 H ABG HCO3 15.4 L ABG O2 Saturation 99.3 H ABG Base Excess -13.1 FiO2 100% Sodium Potassium Chloride Carbon Dioxide Anion Gap BUN Creatinine Est GFR ( Amer) Est GFR (Non-Af Amer) Glucose Lactic Acid 3.2 H Calcium Iron TIBC % Saturation Ferritin Total Bilirubin AST ALT Alkaline Phosphatase Total Protein Albumin Vitamin B12 Folate 01/12/19 17:55 Catheterized Urine Urine Culture - Final Staphylococcus Aureus 01/12/19 12:12 Blood Blood Culture - Final Staphylococcus Aureus 01/12/19 17:55 Tracheal Aspirate Gram Stain - Final 01/12/19 17:55 Tracheal Aspirate Sputum Culture - Final Staphylococcus Aureus Normal Randa Absent 01/12/19 12:20 Blood Blood Culture - Final Staphylococcus Aureus 01/12/19 01/12/19 12:12 12:12 Creatine Kinase 41 L CK-MB (CK-2) 1.13 Troponin I < 0.012 Impressions: Chest CT 01/12/19 15:45 IMPRESSION: Extensive airspace disease in both lungs with cavitation. Multicentric neoplasm versus atypical infectious process. Fairly dense airspace disease in the lower lobes. Assessment & Plan - Diagnosis (1) Septic shock due to Gram positive bacteria Plan: Patient is an IV drug user now growing staph bacteremia. 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 He has got CT scan showing pulmonary cavitation suggestive of septic embolization. Patient is extremely and critically ill in multisystem organ failure. He has anuric renal shutdown. Patient is on multiple/3 pressors on IV antibiotics and fluids. (2) Acute renal failure Qualifiers: Acute renal failure type: unspecified Qualified Code(s): N17.9 - Acute kidney failure, unspecified Plan: Secondary to septic shock in the face of IV drug abuse/staph b acteremia/tricuspid valve endocarditis on transthoracic echo. Has also got evidences of septic embolization to his lungs. Patient is critically ill and has a very poor prognosis currently on 3 pressors/multiple antibiotics and fluid resuscitation. He has gone into respiratory shutdown and is apparent presently intubated and sedated. Patient needs to be started on renal replacements but given the fact he is in severe septic shock he needs to have CRRT and unfortunately we do not have that capability in this hospital. He will therefore have to be transferred. Discussed at length with Dr. Minh hargrove/hospitalist. (3) Acute respiratory failure with hypoxia Is this a current diagnosis for this admission?: Yes Plan: Currently intubated and sedated. (4) Gram-positive cocci bacteremia Is this a current diagnosis for this admission?: Yes Plan: Growing pansensitive staph aureus. On appropriate antibiotics. (5) Hyperkalemia Is this a current diagnosis for this admission?: Yes Plan: In the face of TARIK with hyperkalemia and severe metabolic acidosis. Patient currently on bicarb drip. Needs CRRT. Needs to be transferred as we lack that capability. (6) Intravenous drug abuse, continuous Is this a current diagnosis for this admission?: Yes Plan: Long-term IV drug user with multiple needle max on his upper extremities. (7) Metabolic acidosis Plan: Shows combined respiratory/metabolic acidosis in the face of severe lactic acidosis from septic shock from staph aureus bacteremia in the face of tricuspid valve endocarditis/IV drug use.Patient needs to be started on renal replacements for obvious reasons. Need CRRT.
--- NOTE | 2019-01-14 12:29 | PDOC TRANSFER SUMMARY ---
General Admission Date/PCP: 01/12/19 15:18 Admission Date: 01/12/19 Transfer Date: 01/14/19 Accepting Facility: [facility] Resuscitation Status: Full Code - Transfer Diagnosis (1) Sepsis due to pneumonia Is this a current diagnosis for this admission?: Yes Diagnosis Summary: The patient presented quite ill but able to participate in the encounter. Was on BiPAP but was able to answer questions albeit limited. He was tachycardic with decreasing blood pressure. He was struggling to breathe even on the BiPAP. His respiratory rate was between 45 and 50. His bilirubin was elevated as were transaminases. All factors qualifying him for shock from a florid pneumonia. The patient has become acidotic with decreased perfusion to end organs including liver and kidney. The patient has exhibited severe hypotension. He is currently on 3 pressors (Gustavo-Synephrine, Levophed and vasopressin). He has been getting aggressive fluid resuscitation as well as daily doses of albumin. I believe they have been able to wean off 1 of the pressors this morning. With the high fluid requirements the patient is becoming edematous. (2) Acute respiratory failure with hypoxia Is this a current diagnosis for this admission?: Yes Diagnosis Summary: Respiratory failure secondary to diffuse bilateral pneumonia and sepsis. The patient was not able to sustain on BiPAP. He was intubated. He has consistently been on SIMV. FiO2 is been increasing slowly. Please also see pulmonology note. (3) Multifocal pneumonia Is this a current diagnosis for this admission?: Yes Diagnosis Summary: CT scan identified multiple cavitary lesions bilaterally. Blood cultures, sputum and urine are positive for methicillin sensitive staph aureus. The antibiotic therapy has been changed to cefazolin 2 g every 8 hours. Echocardiogram reveals large vegetation on the tricuspid valve likely involving all 3 leaflets. (4) Staphylococcus aureus bacteremia with sepsis Is this a current diagnosis for this admission?: Yes Diagnosis Summary: Blood cultures as well as urine and sputum cultures were positive for methicillin sensitive staph aureus. Tricuspid valve was positive for vegetations. As we have the sensitivities the antibiotics were changed to Ancef 2 g every 8 hours. (5) Acute renal injury due to sepsis Is this a current diagnosis for this admission?: Yes Diagnosis Summary: The patient's renal function has acutely worsened since yesterday. His serum creatinine yesterday was 1.07 and this morning is 2.95. Likely acute tubular necrosis from hypoperfusion. Nephrology was consulted. Dr. Jiménez believes the patient may require continuous renal replacement therapy. I will defer to the accepting facilities room service waiter/waitress. (6) Acute hepatitis Is this a current diagnosis for this admission?: Yes Diagnosis Summary: Viral serologies are pending. The patient's transaminases were elevated on admission as well as his bilirubin. However there is been a marked change today. His AST from yesterday was 268 and is 7692 today. His ALT was 157 and today is 2479. His alkaline phosphatase remains normal. His total bilirubin was 1.9 yesterday and today is 2.5. Again hypoperfusion with sepsis and shock are the likely culprits. The viral serologies have not returned as yet. (7) Hyponatremia Is this a current diagnosis for this admission?: Yes Diagnosis Summary: Serum sodium was below 130 on admission. This morning it is 132 and has been improving slowly. (8) Leukocytosis Is this a current diagnosis for this admission?: Yes Diagnosis Summary: The patient's white blood cell count on admission. 29.8 at the time of admission and it improved slightly to 26.5 with the initiation of antibiotics. However today it was back up at 30.1. He is also exhibiting thrombocytopenia. (9) Hyperphosphatemia Is this a current diagnosis for this admission?: Yes Diagnosis Summary: Serum phosphorus was elevated yesterday. The patient was given several doses of PhosLo. We will need to continue to monitor phosphorus levels. (10) Nutritional deficiency Is this a current diagnosis for this admission?: Yes Diagnosis Summary: The patient cannot specifically give me numbers regarding weight loss but he does report noticeable weight loss over the last several months. His serum albumin was less than 2.0 on admission. (11) Dry eyes, bilateral Is this a current diagnosis for this admission?: Yes Diagnosis Summary: Patient's eyes do not close completely. We are using refresh eyedrops to keep the eyes moist. (12) Hyperkalemia Is this a current diagnosis for this admission?: Yes Diagnosis Summary: The patient's serum potassium was 5.9 today. This is likely associated with his acute kidney failure. Because the patient will be transferring to [facility] relatively soon I have not given Kayexalate or lactulose. (13) Intravenous drug abuse, continuous Is this a current diagnosis for this admission?: Yes Diagnosis Summary: Patient admits to current intravenous drug use. His urine screen was positive for opiates. He does report using meth as well. (14) Anemia in chronic illness Is this a current diagnosis for this admission?: Yes Diagnosis Summary: Initially iron deficiency was suspected however the patient's serum iron was normal. It is most likely anemia of chronic disease. - Transfer Medications Home Medications: No Home Medications 01/12/19 Transfer Medications: Current Medications Acetaminophen (Tylenol 325 Mg Tablet) 650 mg PO Q4HP PRN PRN Reason: pain or temp greater than 101F Stop: 02/11/19 15:13 Last Admin: 01/13/19 12:20 Dose: 650 mg Documented by: Acetaminophen (Tylenol 650 Mg Supp) 650 mg MN Q4HP PRN PRN Reason: FOR PAIN OR TEMP Stop: 02/11/19 15:33 Albuterol (Ventolin 0.083% Neb 2.5 Mg/3 Ml Ampul) 2.5 mg NEB RTQ3HP PRN PRN Reason: SHORTNESS OF BREATH Stop: 02/11/19 15:34 Albuterol (Ventolin 0.083% Neb 2.5 Mg/3 Ml Ampul) 2.5 mg NEB RTQ6 KEENAN Stop: 02/11/19 19:59 Last Admin: 01/14/19 08:21 Dose: 2.5 mg Documented by: Artificial Tears (Refresh Plus 0.5% Oph Soln 0.4 Ml Droperette) 1 drop OU Q6 S Stop: 02/12/19 11:59 Last Admin: 01/14/19 11:36 Dose: 1 drop Documented by: Calcium Acetate (Phoslo 667 Mg Capsule) 667 mg NG TID [facility] Stop: 01/15/19 13:59 Last Admin: 01/14/19 09:12 Dose: 667 mg Documented by: Famotidine (Pepcid Inj/Pf 20 Mg/2 Ml Sdv) 20 mg IV Q12 KEENAN Stop: 02/11/19 21:59 Last Admin: 01/14/19 09:12 Dose: 20 mg Documented by: Guaifenesin (Mucinex Sr 600 Mg Tablet.Sa) 600 mg PO Q12 [facility] Stop: 02/11/19 21:59 Last Admin: 01/14/19 09:13 Dose: 600 mg Documented by: Heparin Sodium (Porcine) (Heparin Inj 5,000 Units/Ml 1 Ml Syringe) 5,000 unit SUBCUT Q8 KEENAN Stop: 02/11/19 21:59 Last Admin: 01/14/19 05:47 Dose: Not Given Documented by: Propofol (Diprivan Rtu 1000 Mg/100 Ml Inf.Bottle) 1,000 mg in 100 mls @ 0 mls/hr IV CONTINUOUS PRN; Protocol PRN Reason: THIS MED IS NOT "PRN" Stop: 02/11/19 18:42 Last Titration: 01/13/19 03:32 Dose: Infused Documented by: Midazolam HCl (Versed Rtu 50 Mg/100 Ml Premix Bag) 50 mg in 100 mls @ 0 mls/hr IV CONTINUOUS PRN; Protocol PRN Reason: THIS MED IS NOT "PRN" Stop: 01/19/19 18:49 Last Admin: 01/14/19 11:22 Dose: 30 mls/hr, 30 mls/hr Documented by: Hard Fat/Phenylephrine 40 mg/ (Dextrose) 250 mls @ 0 mls/hr IV CONTINUOUS PRN; Protocol PRN Reason: THIS MED IS NOT "PRN" Stop: 02/11/19 19:43 Last Admin: 01/14/19 05:45 Dose: 100 mcg/min, 37.5 mls/hr Documented by: Rocuronium [place] 500 mg/ (Sodium Chloride) 500 mls @ 0 mls/hr IV CONTINUOUS PRN PRN Reason: THIS MED IS NOT "PRN" Stop: 02/11/19 20:50 Last Infusion: 01/13/19 08:15 Dose: 0 mcg/kg/min, 0 mls/hr Documented by: Esmolol HCl (Brevibloc Rtu 2500 Mg/250 Ml Nacl Premix Bag) 2,500 mg in 250 mls @ 0 mls/hr IV CONTINUOUS PRN; Protocol PRN Reason: THIS MED IS NOT "PRN" Stop: 02/12/19 10:42 Vasopressin 100 unit/ Dextrose 250 mls @ 0 mls/hr IV CONTINUOUS PRN; Protocol PRN Reason: THIS MED IS NOT "PRN" Stop: 02/12/19 12:31 Last Titration: 01/14/19 10:51 Dose: 0.01 unit/min, 1.5 mls/hr Documented by: Norepinephrine Bitartrate 4 mg (/ Dextrose) 250 mls @ 0 mls/hr IV CONTINUOUS PRN; Protocol PRN Reason: THIS MED IS NOT "PRN" Stop: 02/12/19 13:53 Last Titration: 01/14/19 11:33 Dose: 0 mcg/min, 0 mls/hr Documented by: Sodium Chloride (Nacl 0.9% 1000 Ml Iv Soln) 1,000 mls @ 250 mls/hr IV CONTINUOUS PRN PRN Reason: THIS MED IS NOT "PRN" Stop: 02/12/19 13:54 Last Admin: 01/14/19 08:45 Dose: 250 mls/hr Documented by: Sodium Bicarbonate 100 meq/ (Dextrose) 1,100 mls @ 100 mls/hr IV CONTINUOUS PRN PRN Reason: THIS MED IS NOT "PRN" Stop: 02/12/19 21:59 Last Admin: 01/14/19 09:13 Dose: 100 ml/hr, 100 mls/hr Documented by: Albumin Human (Albuminar-25 Rtu Inj 12.5 Gm/50 Ml Premix) 12.5 gm in 50 mls @ 50 mls/hr IV Q1H [facility] Stop: 01/14/19 12:59 Last Admin: 01/14/19 11:30 Dose: 50 ml/hr, 50 mls/hr Documented by: Cefazolin Sodium/Dextrose (Ancef Rtu 2 Gm/D5w 50 Ml Premix Bag) 2 gm in 50 mls @ 100 mls/hr IV Q8 [facility] Stop: 01/21/19 13:59 Influenza Virus Vaccine Quadrival (Fluarix Adlt Quad Vac 0.5 Ml Syr) 0.5 ml IM .DISCHARGE PRN PRN Reason: THIS MED IS NOT "PRN" Stop: 02/11/19 17:57 Lorazepam (Ativan Inj 2 Mg/1 Ml Vial) 0.5 mg IV Q6HP PRN PRN Reason: ANXIETY/AGITATION Stop: 01/19/19 16:24 Metoprolol Tartrate (Lopressor 25 Mg Tablet) 25 mg PO Q12 [facility] Stop: 02/12/19 21:59 Morphine Sulfate (Morphine 10 Mg/Ml Inj) 4 mg IV Q4HP PRN PRN Reason: FOR PAIN Stop: 01/19/19 15:33 Last Admin: 01/13/19 05:56 Dose: 4 mg Documented by: Pharmacy Profile Note (Medication Communication Order) 1 each [facility] .NOTICE NR Stop: 02/11/19 15:14 Sodium Chloride (Saline Flush 2.5 Ml Monoject Prefil Syrin) 2.5 ml IV Q8 KEENAN Stop: 02/11/19 21:59 Last Admin: 01/14/19 05:47 Dose: Not Given Documented by: - Allergies Allergies/Adverse Reactions: No Known Allergies Allergy (Verified 06/18/12 15:02) - Diet/Activity Discharge Diet: Other (Comments) - The patient is n.p.o. He has been started on tube feeds. Hospital Course Hospital Course: I admitted the patient on Friday with diffuse bilateral cavitary lesions with staph aureus pneumonia. He quickly decompensated and was intubated. By the evening he was on vasopressors. Pulmonology was seeing the patient as well. He had a severe metabolic acidosis from his sepsis. He was started on broad- spectrum antibiotics but today we were able to change to Ancef as the identification and sensitivities were available. With his septic shock the patient has seen a significant change in endorgan fu nction since yesterday. As noted above the transaminases spiked very high and the patient exhibits acute kidney failure as well. His urine output has dropped despite high volume infusions. An transthoracic echocardiogram was obtained. The patient has a large vegetation on the tricuspid valve likely involving the 3 leaflets. This is consistent with the diffuse multiple cavitary lesions noted on x-ray. The patient exhibits a severe decompensation over the last 2 days despite aggressive therapy with antibiotics, mechanical ventilation support, vasopressors and aggressive fluid resuscitation. He exhibited shock liver as well as acute kidney failure from overwhelming sepsis. With the identification of the vegetation on the tricuspid valve I reached out to [facility]. They have accepted the patient in transfer. Physical Exam Vital Signs: Temp Pulse Resp BP Pulse Ox 99.1 F 109 H 30 H 108/67 100 01/14/19 10:26 01/14/19 10:00 01/14/19 10:26 01/14/19 10:26 01/14/19 10:26 Intake & Output 01/13/19 01/14/19 01/15/19 06:59 06:59 06:59 Intake Total 5084 12479 2062 Output Total 985 925 5 Balance 4099 9646 2057 Weight 69 kg 78.4 kg General appearance: PRESENT: other - Intubated and sedated Eye exam: PRESENT: conjunctiva pale, scleral icterus Ear exam: PRESENT: normal external ear exam Mouth exam: PRESENT: other - Endotracheal tube in place Neck exam: ABSENT: carotid bruit, lymphadenopathy Respiratory exam: PRESENT: rhonchi - Coarse rhonchi bilaterally., symmetrical, tachypnea. ABSENT: rales Cardiovascular exam: PRESENT: +S1, +S2, tachycardia GI/Abdominal exam: PRESENT: normal bowel sounds, soft, other - Orogastric tube in place.. ABSENT: distended, tenderness Rectal exam: PRESENT: deferred Gentrourinary exam: PRESENT: indwelling catheter Extremities exam: PRESENT: pedal edema, other - Also starting to exhibit edema in upper extremities as well as lower extremities. Neurological exam: PRESENT: other - Sedated Results Laboratory Results: 01/14/19 04:55 01/14/19 04:55 01/13/19 01/13/19 01/13/19 04:30 16:40 20:40 WBC RBC Hgb Hct MCV MCH MCHC RDW Plt Count Seg Neutrophils % Lymphocytes % Monocytes % Eosinophils % Basophils % Absolute Neutrophils Absolute Lymphocytes Absolute Monocytes Absolute Eosinophils Absolute Basophils Retic Count (auto) 0.69 Absolute Retic 0.028 Carbonic Acid HCO3/H2CO3 Ratio ABG pH ABG pCO2 ABG pO2 ABG HCO3 ABG O2 Saturation ABG Base Excess FiO2 Sodium Potassium Chloride Carbon Dioxide Anion Gap BUN Creatinine Est GFR ( Amer) Est GFR (Non-Af Amer) Glucose Lactic Acid 5.4 H 6.4 H Calcium Iron TIBC % Saturation Ferritin Total Bilirubin AST ALT Alkaline Phosphatase Total Protein Albumin Vitamin B12 Folate 01/13/19 01/13/19 01/14/19 21:05 23:28 04:55 WBC RBC Hgb Hct MCV MCH MCHC RDW Plt Count Seg Neutrophils % Lymphocytes % Monocytes % Eosinophils % Basophils % Absolute Neutrophils Absolute Lymphocytes Absolute Monocytes Absolute Eosinophils Absolute Basophils Retic Count (auto) Absolute Retic Carbonic Acid 1.55 H HCO3/H2CO3 Ratio 9:1 ABG pH 7.07 L* ABG pCO2 51.6 H ABG pO2 73.2 L ABG HCO3 14.7 L ABG O2 Saturation 87.7 L ABG Base Excess -15.1 FiO2 45% Sodium 132.3 L Potassium 5.9 H Chloride 102 Carbon Dioxide 18 L Anion Gap 12 BUN 58 H Creatinine 2.95 H Est GFR ( Amer) 28 L Est GFR (Non-Af Amer) 24 L Glucose 221 H Lactic Acid 4.6 H Calcium 6.1 L* Iron 109.1 TIBC 110 L % Saturation 99 Ferritin > 74537.00 H Total Bilirubin 2.5 H AST 7692 H ALT 2479 H Alkaline Phosphatase 113 Total Protein 5.1 L Albumin 1.8 L Vitamin B12 > 1000.0 H Folate 19.40 01/14/19 01/14/19 01/14/19 04:55 04:55 10:35 WBC 30.1 H* RBC 3.56 L Hgb 9.5 L Hct 30.0 L MCV 84 MCH 26.8 L MCHC 31.8 L RDW 16.9 H Plt Count 68 L Seg Neutrophils % Not Reportable Lymphocytes % Not Reportable Monocytes % Not Reportable Eosinophils % Not Reportable Basophils % Not Reportable Absolute Neutrophils Not Reportable Absolute Lymphocytes Not Reportable Absolute Monocytes Not Reportable Absolute Eosinophils Not Reportable Absolute Basophils Not Reportable Retic Count (auto) Absolute Retic Carbonic Acid 1.41 H HCO3/H2CO3 Ratio 10:1 ABG pH 7.14 L* ABG pCO2 46.7 H ABG pO2 249.5 H ABG HCO3 15.4 L ABG O2 Saturation 99.3 H ABG Base Excess -13.1 FiO2 100% Sodium Potassium Chloride Carbon Dioxide Anion Gap BUN Creatinine Est GFR ( Amer) Est GFR (Non-Af Amer) Glucose Lactic Acid 3.2 H Calcium Iron TIBC % Saturation Ferritin Total Bilirubin AST ALT Alkaline Phosphatase Total Protein Albumin Vitamin B12 Folate 01/12/19 17:55 Catheterized Urine Urine Culture - Final Staphylococcus Aureus 01/12/19 12:12 Blood Blood Culture - Final Staphylococcus Aureus 01/12/19 17:55 Tracheal Aspirate Gram Stain - Final 01/12/19 17:55 Tracheal Aspirate Sputum Culture - Final Staphylococcus Aureus Normal Randa Absent 01/12/19 12:20 Blood Blood Culture - Final Staphylococcus Aureus 01/12/19 01/12/19 12:12 12:12 Creatine Kinase 41 L CK-MB (CK-2) 1.13 Troponin I < 0.012 Impressions: Chest CT 01/12/19 15:45 IMPRESSION: Extensive airspace disease in both lungs with cavitation. Multicentric neoplasm versus atypical infectious process. Fairly dense airspace disease in the lower lobes. Plan Discharge Plan: Patient has been accepted in transfer to [facility]. He will be seen by cardiac surgery in addition to the intensivists, nephrology and other subspecialties deemed appropriate by the accepting physician. The patient's mother was at the bedside and she is aware of the transfer. Time Spent: Greater than 30 Minutes
--- NOTE | 2019-01-14 12:30 | RADIOLOGY REPORT (SQ) ---
EXAM DESCRIPTION: CHEST SINGLE VIEW COMPLETED DATE/TIME: 01/14/2019 11:05 am REASON FOR STUDY: resp failure COMPARISON: 01/13/2019 NUMBER OF VIEWS: One view. TECHNIQUE: Single frontal radiographic image of the chest acquired. LIMITATIONS: None. FINDINGS: LUNGS AND PLEURA: Bilateral cavitary airspace disease and small pleural effusions not sign ificantly changed. No pneumothorax. MEDIASTINUM AND HEART: Stable heart size and mediastinal structures. SUPPORT DEVICES: Appropriate location without change. BONY STRUCTURES: No acute findings. HARDWARE: None. OTHER: No other significant finding. IMPRESSION: STABLE APPEARANCE OF THE CHEST. SUPPORT DEVICES UNCHANGED. Reading location - IP/workstation name: [email or web address]
[2019-01-14] MEDS: MORPHINE SULFATE 10 MG/ML INJ IV PRN (12:57)
[2019-01-14 13:10] LABS: ARTERIAL BLOOD BASE EXCESS -11.6 mmol/L; ARTERIAL BLOOD FIO2 85%; ARTERIAL BLOOD H2CO3 1.19 mmol/L (1.05-1.35); ARTERIAL BLOOD HCO3 15.5 mmol/L (20-24); ARTERIAL BLOOD O2 SATURATION 98.8 % (94-98); ARTERIAL BLOOD PCO2 39.4 mmHg (35-45); ARTERIAL BLOOD PH 7.21 (7.35-7.45); ARTERIAL BLOOD PO2 171.3 mmHg (80-100); ARTERIAL BLOOD TOTAL CO2 16.7 mmol/L (23-27)
[2019-01-14] MEDS ORDERED: CEFAZOLIN 2 GM/D5W RTU 2 GM/50 ML RTUPB IV SCH (14:00)
[2019-01-14 15:00] VITALS: BP 95/62
== END 2019-01-14 15:30 | disposition short-term general hospital (02) | DRG 871 ==
LOC: ER 12:04 → EH 15:18 → ICU 17:31
PROVIDERS: ADMIT Internal Medicine; ATTEND Internal Medicine
PROC: 5A1945Z Respiratory Ventilation, 24-96 Consecutive Hours (ICD-10-PCS; principal; 2019-01-12)
PROC: 5A09357 Assistance with Respiratory Ventilation, Less than 24 Consecutive Hours, Continuous Positive Airway Pressure (ICD-10-PCS; 2019-01-12)
PROC: 02HV33Z Insertion of Infusion Device into Superior Vena Cava, Percutaneous Approach (ICD-10-PCS; 2019-01-12)
PROC: 0BH17EZ Insertion of Endotracheal Airway into Trachea, Via Natural or Artificial Opening (ICD-10-PCS; 2019-01-12)
PROC: 3E0F3GC Introduction of Other Therapeutic Substance into Respiratory Tract, Percutaneous Approach (ICD-10-PCS; 2019-01-12)
DX: A41.01 Sepsis due to Methicillin susceptible Staphylococcus aureus (principal); J96.01 Acute respiratory failure with hypoxia; R65.21 Severe sepsis with septic shock; I26.90 Septic pulmonary embolism without acute cor pulmonale; J15.211 Pneumonia due to Methicillin susceptible Staphylococcus aureus; N17.9 Acute kidney failure, unspecified; E87.2 Acidosis; E87.1 Hypo-osmolality and hyponatremia; B17.9 Acute viral hepatitis, unspecified; E83.39 Other disorders of phosphorus metabolism; I36.8 Other nonrheumatic tricuspid valve disorders; F32.9 Major depressive disorder, single episode, unspecified; M54.6 Pain in thoracic spine; L98.9 Disorder of the skin and subcutaneous tissue, unspecified; B35.1 Tinea unguium; F15.10 Other stimulant abuse, uncomplicated; E63.9 Nutritional deficiency, unspecified; D50.9 Iron deficiency anemia, unspecified; D63.8 Anemia in other chronic diseases classified elsewhere; Z87.891 Personal history of nicotine dependence
CPT/HCPCS: 36415; 36600; 71045; 71260; 80048; 80053; 80074; 80076; 80307; 81001; 82550; 82553; 82607; 82728; 82746; 82803; 83540; 83550; 83605; 83735; 84100; 84443; 84484; 85025; 85045; 85610; 85730; 86701; 87040; 87070; 87077; 87086; 87088; 87186; 87205; 93005; 93010; 93306; 94002; 94003; 94640; 94660; 96361; 96365; 96367; 96375; 99285; C1751; J0330; J1940; J2250; J2270; J2370; J2543; J2704; J3370; J3490; J7030; J7040; J7060; J7120; P9047; S0028